=== PATIENT | female | born 1955 | race African-American/Black ===

== ENCOUNTER 2016-04-06 16:31 | Emergency (ER) | payer OTHER ==
[~2016-04-06] VITALS: Ht 167.6 cm; Wt 83.9 kg
[~2016-04-06 16:31] MED LIST: ACETAMINOPHEN-1 EAC1 ORAL; ALBUTEROL SULF8.5 GM INH; ASPIRIN81 MG ORAL; AZITHROMYCIN250 MG ORAL; AZITHROMYCIN250 MG PO; GABAPENTIN300 MG ORAL; GLUCOPHAGE500 MG PO; GLUCOTROL5 MG ORAL; GUAIFENESIN DA473 ML PO; HUMALOG100 UNIT/3 SUBQ; HYDROCODON-ACE1 EA15 ORAL; JANUVIA100 MG ORAL; LANTUS SOL100 UNIT/1 SUBQ; NORCO 5-325 TA1 EACH ORAL; NORCO 5-325 TA1 EACH PO; NORCO1 E1 ORAL; ONDANSETRON ODT4 MG PO; PHENERGAN/CODE120 ML PO; PREDNISONE20 MG ORAL; PROMETHAZINE-C118 M1 ORAL; PROVENTIL HFA6.7 G1 INH; QVAR 80MCG ORA1 PUFF; RISPERDAL2 MG ORAL; SOMA350 MG PO; TRAMADOL HCL50 MG ORAL; TRAZODONE HCL50 MG ORAL; ULTRAM50 MG ORAL; VICODIN 5-5001 EACH ORAL; VICODIN 5-5001 EACH PO; VITAMIN D22000 UNIT PO
--- NOTE | 2016-04-06 17:05 | Emergency Room Report ---
History of Present Illness General Chief Complaint: Nausea, Vomiting, and Diarrhea Source: Patient, Medical Record Present Illness HPI Patient is a 61-year-old female who presented after increased abdominal pain and vomiting. Patient reported having history of type 2 diabetes. The patient states that she been having increased epigastric pain associated with vomiting as well as diarrhea. Patient states that she has been feeling somewhat lightheaded. She reports having a cramping sensation in the epigastric area which is unchanged by food Allergies: Coded Allergies: IBUPROFEN (Verified Adverse Reaction, Intermediate, GI UPSET, 04/06/12) Patient History Past Medical History: see triage record Reviewed Nursing Documentation: PMH: Agreed, PSxH: Agreed Nursing Documentation-PMH Hx Hypertension: No Hx Pacemaker: No Hx Asthma: Yes Hx COPD: No Hx Diabetes: Yes Hx Cancer: No Hx Gastrointestinal Problems: No Hx Dialysis: No Hx Cerebrovascular Accident: No Hx Seizures: No Review of Systems All Other Systems: negative except mentioned in HPI Physical Exam Vital Signs Date Time Temp Pulse Resp B/P Pulse Ox O2 Delivery O2 Flow Rate FiO2 04/06/16 16:47 97.5 101 28 175/100 95 Room Air Sp02 EP Interpretation: reviewed, normal General Appearance: normal inspection, no apparent distress, alert, GCS 15, non -toxic, mild distress Head: atraumatic ENT: normal ENT inspection, hearing grossly normal, normal voice Neck: normal inspection, full range of motion, supple, no bony tend Respiratory: normal inspection, lungs clear, normal breath sounds, no respiratory distress, no retraction, no wheezing Cardiovascular #1: regular rate, rhythm, no edema Gastrointestinal: normal inspection, normal bowel sounds, non tender, soft, no guarding, no hernia Genitourinary: no CVA tenderness Musculoskeletal: normal inspection, back normal, normal range of motion Neurologic: normal inspection, alert, oriented x3, responsive, obgyn hospitalist physician III-XII nml as tested, speech normal Psychiatric: normal inspection, judgement/insight normal, mood/affect normal Skin: normal inspection, normal color, no rash Medical Decision Making ER Course Patient presented for abdominal pain. Differential diagnoses included ischemic bowel, appendicitis, perforated viscus, abdominal aortic aneurysm, inferior myocardial infarction, viral gastroenteritis Because of complexity of patient's case laboratory testing and imaging studies were ordered. Laboratory testing was unremarkable except for elevated blood sugar. Patient was given IV fluids and antiemetics. She stated she felt better. Patient was given return precautions.The patient is advised to follow up with primary care doctor in 1-2 days. Patient is advised to return if any worsening condition or if any changes in status that are concerning. Labs Test 04/06/16 17:20 White Blood Count 8.5 K/UL (4.8-10.8) Red Blood Count 4.87 M/UL (4.20-5.40) Hemoglobin 14.8 G/DL (12.0-16.0) Hematocrit 44.0 % (37.0-47.0) Mean Corpuscular Volume 90 FL (80-99) Mean Corpuscular Hemoglobin 30.3 PG (27.0-31.0) Mean Corpuscular Hemoglobin Concent 33.6 G/DL (32.0-36.0) Red Cell Distribution Width 12.3 % (11.6-14.8) Platelet Count 192 K/UL (150-450) Mean Platelet Volume 7.7 FL (6.5-10.1) Neutrophils (%) (Auto) 74.0 % (45.0-75.0) Lymphocytes (%) (Auto) 20.1 % (20.0-45.0) Monocytes (%) (Auto) 4.1 % (1.0-10.0) Eosinophils (%) (Auto) 1.0 % (0.0-3.0) Basophils (%) (Auto) 0.8 % (0.0-2.0) Prothrombin Time 10.1 SEC (9.30-11.50) Prothromb Time International Ratio 1.0 (0.9-1.1) Activated Partial Thromboplast Time 27 SEC (23-33) Sodium Level 141 mEQ/L (135-145) Potassium Level 4.2 mEQ/L (3.4-4.9) Chloride Level 96 mEQ/L (98-107) Carbon Dioxide Level 31 mEQ/L (20-30) Anion Gap 14 (5-15) Blood Urea Nitrogen 16 mg/dL (7-23) Creatinine 0.9 mg/dL (0.5-0.9) Estimat Glomerular Filtration Rate > 60 mL/min (>60) Glucose Level 349 mg/dL (74-106) Calcium Level 9.8 mg/dL (8.6-10.2) Total Bilirubin 0.2 mg/dL (0.0-1.2) Aspartate Amino Transf (AST/SGOT) 13 U/L (5-40) Alanine Aminotransferase (ALT/SGPT) 13 U/L (3-33) Alkaline Phosphatase 106 U/L (35-104) Troponin I < 0.30 ng/mL (<=0.30) Total Protein 8.0 g/dL (6.6-8.7) Albumin 4.4 g/dL (3.5-5.2) Globulin 3.6 g/dL Albumin/Globulin Ratio 1.2 (1.0-2.7) Lipase 20 U/L (< 60) EKG Diagnostic Results Rate: normal - 90 Rhythm: NSR ST Segments: no acute changes ASA given to the pt in ED: No Rhythm Strip Diag. Results EP Interpretation: yes Rhythm: NSR, no PVC's, no ectopy Last Vital Signs Date Time Temp Pulse Resp B/P Pulse Ox O2 Delivery O2 Flow Rate FiO2 04/06/16 16:47 97.5 101 28 175/100 95 Room Air Status: improved Disposition: HOME, SELF-CARE Condition: Stable Scripts Loperamide Hcl (LOPERAMIDE) 2 Mg Tablet 2 MG PO Q12HR for Diarrhea, #10 TAB Prov: Erasto Lofton 04/06/16 Ondansetron (Zofran) 4 Mg Tablet 4 MG ORAL Q6H Y for Nausea & Vomiting, #30 TAB 0 Refills Prov: Erasto Lofton 04/06/16 Erasto Lofton Apr 06, 2016 17:05
[2016-04-06] MEDS ORDERED: Mylanta II UD 30ml ORAL ONE (17:15)
[2016-04-06] MEDS ORDERED: Dicyclomine HCl 10mg/5ml oral soln ORAL ONE (17:15)
[2016-04-06] MEDS ORDERED: Metoclopramide 10mg/2ml Inj IVP ONE (17:15)
[2016-04-06] MEDS ORDERED: Lidocaine 2% Visc 15ml soln ORAL ONE (17:15)
[2016-04-06 17:37] VITALS: BP 159/84
[2016-04-06 17:48] LABS: ALANINE AMINOTRANSFERASE 13 U/L (3-33); ALBUMIN/GLOBULIN RATIO 1.2 (1.0-2.7); ANION GAP 14 (5-15); ASPARTATE AMINO TRANSFERASE 13 U/L (5-40); CALCIUM 9.8 mg/dL (8.6-10.2); CARBON DIOXIDE 31 mEQ/L (20-30); CHLORIDE 96 mEQ/L (98-107); CREATININE 0.9 mg/dL (0.5-0.9); GLOMERULAR FILTRATION RATE > 60 mL/min (>60); HEMOLYSIS 6; LIPASE 20 U/L (< 60); POTASSIUM 4.2 mEQ/L (3.4-4.9); SODIUM 141 mEQ/L (135-145)
[2016-04-06 17:52] LABS: BASOPHILS % (AUTO) 0.8 % (0.0-2.0); LYMPHOCYTES % (AUTO) 20.1 % (20.0-45.0); MEAN CORPUSCULAR HEMOGLOBIN 30.3 PG (27.0-31.0); MEAN CORPUSCULAR HGB CONC 33.6 G/DL (32.0-36.0); MEAN CORPUSCULAR VOLUME 90 FL (80-99); MEAN PLATELET VOLUME 7.7 FL (6.5-10.1); MONOCYTES % (AUTO) 4.1 % (1.0-10.0); PLATELET COUNT 192 K/UL (150-450); RED BLOOD COUNT 4.87 M/UL (4.20-5.40); RED CELL DISTRIBUTION WIDTH 12.3 % (11.6-14.8); WHITE BLOOD COUNT 8.5 K/UL (4.8-10.8)
[2016-04-06 17:54] LABS: TROPONIN I < 0.30 ng/mL (<=0.30)
[2016-04-06 18:03] LABS: PROTHROMBIN TIME 10.1 SEC (9.30-11.50)
[2016-04-06] MEDS ORDERED: ZOFRAN4 MG ORAL (18:22)
[2016-04-06] MEDS ORDERED: LOPERAMIDE2 M1 PO (18:22)
[2016-04-06 19:14] VITALS: BP_SYST 132; BP_SYST 159; BP_DIAS 79; BP_DIAS 84
--- NOTE | 2016-04-07 12:17 | Cardiology Report ---
APPROVED REPORT EKG Measurement Heart [id number] Normal sinus rhythm Cannot rule out Anterior infarct, age undetermined Abnormal ECG
== END 2016-04-06 19:16 | disposition home or self-care (01) ==
LOC: EMR 17:05
DX: R11.2 Nausea with vomiting, unspecified (principal); R19.7 Diarrhea, unspecified; J45.909 Unspecified asthma, uncomplicated; E11.9 Type 2 diabetes mellitus without complications; Z88.6 Allergy status to analgesic agent
CPT/HCPCS: 36415; 80053; 82962; 83690; 84484; 85025; 85610; 85730; 93005; 96372; 96374; 96375; 99284; J1815; J2765

== ENCOUNTER 2016-08-14 03:04 | Emergency (ER) | payer MEDICAID, OTHER ==
[~2016-08-14] VITALS: Ht 167.6 cm; Wt 81.2 kg
[~2016-08-14 03:04] MED LIST changes: +LOPERAMIDE2 M1 PO; +ZOFRAN4 MG ORAL
[2016-08-14 03:15] VITALS: BP 118/67
--- NOTE | 2016-08-14 03:32 | Emergency Room Report ---
History of Present Illness General Chief Complaint: Upper Respiratory Illness Source: Patient Present Illness HPI Patient present with complaints of cough and congestion She also reports that she had cramping in both of her legs That came on last night Denies any pleurisy denies any chest pain or shortness of breath Denies any dysuria frequency Patient feels that she has a cold as well with increased cough and congestion Allergies: Coded Allergies: IBUPROFEN (Verified Adverse Reaction, Intermediate, GI UPSET, 04/06/12) Patient History Past Medical History: see triage record Pertinent Family History: none Reviewed Nursing Documentation: PMH: Agreed, PSxH: Agreed Nursing Documentation-PMH Hx Hypertension: No Hx Pacemaker: No Hx Asthma: Yes Hx COPD: No Hx Diabetes: Yes Hx Cancer: No Hx Gastrointestinal Problems: No Hx Dialysis: No Hx Cerebrovascular Accident: No Hx Seizures: No Review of Systems All Other Systems: negative except mentioned in HPI Physical Exam Vital Signs Date Time Temp Pulse Resp B/P Pulse Ox O2 Delivery O2 Flow Rate FiO2 08/14/16 03:10 98.2 92 16 117/69 98 08/14/16 03:14 Room Air Sp02 EP Interpretation: reviewed, normal General Appearance: well appearing, no apparent distress Head: normocephalic, atraumatic Eyes: bilateral eye EOMI, bilateral eye PERRL ENT: hearing grossly normal, normal pharynx, TMs + canals normal, uvula midline Neck: full range of motion, supple, no meningismus, no bony tend Respiratory: lungs clear, normal breath sounds, no rhonchi, no respiratory distress, no retraction, no accessory muscle use Cardiovascular #1: normal peripheral pulses, regular rate, rhythm, no edema, no gallop, no JVD, no murmur Gastrointestinal: normal bowel sounds, non tender, soft, no mass, no organomegaly, non-distended, no guarding, no hernia, no pulsatile mass, no rebound Genitourinary: no CVA tenderness Musculoskeletal: normal inspection Neurologic: oriented x3, responsive, dispatcher automobile rental III-XII nml as tested, motor strength/ tone normal, sensory intact Psychiatric: mood/affect normal Skin: normal color, no rash, warm/dry, palpation normal Lymphatic: normal inspection, no adenopathy Medical Decision Making Diagnostic Impression: Primary Impression: muscle spasm Additional Impressions: Opiate dependence hyperglycemia ER Course Patient reports previous history of blood clot She was here previously with leg cramps an ultrasound at that time was negative At this time patient does not show any swelling of her legs there is no erythema Discomfort is bilateral and intermittent There is no clinical evidence of DVT and further imaging was not obtained for that Patient's glucose on the chemistry was over 300 Accu-Chek prior to disposition is 270 patient potassium is normal she is receiving Portia and soma according to cures review and is stable for continued close outpatient followup Labs Test 08/14/16 03:36 White Blood Count 7.4 K/UL (4.8-10.8) Red Blood Count 4.82 M/UL (4.20-5.40) Hemoglobin 13.9 G/DL (12.0-16.0) Hematocrit 43.0 % (37.0-47.0) Mean Corpuscular Volume 89 FL (80-99) Mean Corpuscular Hemoglobin 28.8 PG (27.0-31.0) Mean Corpuscular Hemoglobin Concent 32.3 G/DL (32.0-36.0) Red Cell Distribution Width 12.3 % (11.6-14.8) Platelet Count 178 K/UL (150-450) Mean Platelet Volume 9.9 FL (6.5-10.1) Neutrophils (%) (Auto) 52.6 % (45.0-75.0) Lymphocytes (%) (Auto) 38.9 % (20.0-45.0) Monocytes (%) (Auto) 5.7 % (1.0-10.0) Eosinophils (%) (Auto) 2.0 % (0.0-3.0) Basophils (%) (Auto) 0.8 % (0.0-2.0) Sodium Level 137 mEQ/L (135-145) Potassium Level 4.0 mEQ/L (3.4-4.9) Chloride Level 97 mEQ/L (98-107) Carbon Dioxide Level 24 mEQ/L (20-30) Anion Gap 16 (5-15) Blood Urea Nitrogen 26 mg/dL (7-23) Creatinine 0.7 mg/dL (0.5-0.9) Estimat Glomerular Filtration Rate > 60 mL/min (>60) Glucose Level 332 mg/dL (74-106) Calcium Level 9.1 mg/dL (8.6-10.2) Total Bilirubin < 0.2 mg/dL (0.0-1.2) Aspartate Amino Transf (AST/SGOT) 11 U/L (5-40) Alanine Aminotransferase (ALT/SGPT) 10 U/L (3-33) Alkaline Phosphatase 102 U/L (35-104) Total Protein 6.7 g/dL (6.6-8.7) Albumin 3.7 g/dL (3.5-5.2) Globulin 3.0 g/dL Albumin/Globulin Ratio 1.2 (1.0-2.7) Chest X-Ray Diagnostic Results EP Interpretation: Yes Findings: no consolidation, no effusion, no pneumothorax Number of Views: 1 Last Vital Signs Date Time Temp Pulse Resp B/P Pulse Ox O2 Delivery O2 Flow Rate FiO2 08/14/16 03:15 98.2 88 14 118/67 98 Room Air Status: improved Disposition: HOME, SELF-CARE Condition: Improved Additional Instructions: Patient is provided with the discharge instructions notified to follow up with primary doctor in the next 2-3 days otherwise return to the er with any worsening symptoms. Please note that this report is being documented using [employer] technology. This can lead to erroneous entry secondary to incorrect interpretation by the dictating instrument. KANE DEE D.O. Aug 14, 2016 03:32
[2016-08-14 03:44] LABS: BASOPHILS % (AUTO) 0.8 % (0.0-2.0); LYMPHOCYTES % (AUTO) 38.9 % (20.0-45.0); MEAN CORPUSCULAR HEMOGLOBIN 28.8 PG (27.0-31.0); MEAN CORPUSCULAR HGB CONC 32.3 G/DL (32.0-36.0); MEAN CORPUSCULAR VOLUME 89 FL (80-99); MEAN PLATELET VOLUME 9.9 FL (6.5-10.1); MONOCYTES % (AUTO) 5.7 % (1.0-10.0); NEUTROPHILS % (AUTO) 52.6 % (45.0-75.0); PLATELET COUNT 178 K/UL (150-450); RED BLOOD COUNT 4.82 M/UL (4.20-5.40); RED CELL DISTRIBUTION WIDTH 12.3 % (11.6-14.8); WHITE BLOOD COUNT 7.4 K/UL (4.8-10.8)
[2016-08-14 03:58] LABS: ALANINE AMINOTRANSFERASE 10 U/L (3-33); ALBUMIN/GLOBULIN RATIO 1.2 (1.0-2.7); ANION GAP 16 (5-15); ASPARTATE AMINO TRANSFERASE 11 U/L (5-40); CALCIUM 9.1 mg/dL (8.6-10.2); CARBON DIOXIDE 24 mEQ/L (20-30); CHLORIDE 97 mEQ/L (98-107); CREATININE 0.7 mg/dL (0.5-0.9); GLOMERULAR FILTRATION RATE > 60 mL/min (>60); HEMOLYSIS 4; SODIUM 137 mEQ/L (135-145); TOTAL PROTEIN 6.7 g/dL (6.6-8.7)
[2016-08-14 05:15] VITALS: BP 128/71
[2016-08-14 05:28] VITALS: BP 128/71
--- NOTE | 2016-08-14 11:33 | Diagnostic Imaging Report ---
Indication: SOB Technique: One view of the chest Comparison: 03/05/2016 Findings: Lungs and pleural spaces are clear. Heart size is normal. No significant change Impression: No acute process This agrees with the preliminary interpretation provided by the emergency room physician
== END 2016-08-14 05:28 | disposition home or self-care (01) ==
LOC: EMR 03:30
DX: M62.838 Other muscle spasm (principal); F11.20 Opioid dependence, uncomplicated; E11.65 Type 2 diabetes mellitus with hyperglycemia; J45.909 Unspecified asthma, uncomplicated; Z88.6 Allergy status to analgesic agent
CPT/HCPCS: 36415; 71010; 80053; 82962; 85025; 99283

== ENCOUNTER 2017-02-18 02:02 | Emergency (ER) | payer MEDICAID, OTHER ==
[~2017-02-18] VITALS: Ht 167.6 cm; Wt 81.6 kg
[2017-02-18 02:20] VITALS: BP 123/76
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
[2017-02-18] MEDS ORDERED: ROBAXIN-750750 MG PO (02:40)
[2017-02-18] MEDS ORDERED: oxyCODONE HCL/Acetaminophen 5/325mg ORAL ONE (02:45)
[2017-02-18] MEDS ORDERED: Methocarbamol 750mg tab ORAL ONE (02:45)
[2017-02-18 03:04] VITALS: BP 123/76
== END 2017-02-18 03:04 | disposition home or self-care (01) ==
LOC: EMR 02:17
DX: M54.2 Cervicalgia (principal); J45.909 Unspecified asthma, uncomplicated; E11.9 Type 2 diabetes mellitus without complications; Z88.6 Allergy status to analgesic agent
CPT/HCPCS: 99283

== ENCOUNTER 2017-05-30 09:38 | Emergency (ER) | payer OTHER ==
[~2017-05-30] VITALS: Ht 167.6 cm; Wt 83.9 kg
[~2017-05-30 09:38] MED LIST changes: +ROBAXIN-750750 MG PO
[2017-05-30 09:53] VITALS: BP 130/70
[2017-05-30] MEDS ORDERED: Ipratropium 0.02% Inh Soln 2.5ml UD HHN ONE (10:30)
[2017-05-30] MEDS ORDERED: Morphine Sulfate 4mg/ml Inj IVP ONE (10:30)
[2017-05-30] MEDS ORDERED: Albuterol ud Inhalation HHN ONE (10:30)
[2017-05-30 10:58] LABS: APPEARANCE,URINE SLIGHTLY CLOUDY; BILIRUBIN, URINE NEGATIVE (NEGATIVE); COLOR,URINE AMBER; GLUCOSE, URINE (UA) 4+ (NEGATIVE); KETONES,URINE NEGATIVE (NEGATIVE); LEUKOCYTE ESTERASE ,URINE 1+ (NEGATIVE); NITRITE,URINE NEGATIVE (NEGATIVE); PH,URINE 6 (4.5-8.0); PROTEIN,URINE 1+ (NEGATIVE); UROBILINOGEN,URINE 1 MG/DL (0.0-1.0)
[2017-05-30 11:00] VITALS: BP 128/68
[2017-05-30 11:08] LABS: ANION GAP 4 mmol/L (5-15); BLOOD UREA NITROGEN 17 mg/dL (7-18); CALCIUM 8.9 MG/DL (8.5-10.1); CARBON DIOXIDE 33 MMOL/L (21-32); CHLORIDE 103 MMOL/L (98-107); CREATININE 0.8 MG/DL (0.55-1.30); POTASSIUM 4.7 MMOL/L (3.5-5.1); SODIUM 140 MMOL/L (136-145)
[2017-05-30 11:09] LABS: BASOPHILS % (AUTO) 0.9 % (0.0-2.0); EOSINOPHILS % (AUTO) 2.1 % (0.0-3.0); HEMATOCRIT 42.3 % (37.0-47.0); HEMOGLOBIN 13.5 G/DL (12.0-16.0); LYMPHOCYTES % (AUTO) 36.3 % (20.0-45.0); MEAN CORPUSCULAR VOLUME 92 FL (80-99); MONOCYTES % (AUTO) 4.4 % (1.0-10.0); NEUTROPHILS % (AUTO) 56.3 % (45.0-75.0); PLATELET COUNT 232 K/UL (150-450); RED BLOOD COUNT 4.57 M/UL (4.20-5.40); RED CELL DISTRIBUTION WIDTH 12.5 % (11.6-14.8); WHITE BLOOD COUNT 8.5 K/UL (4.8-10.8)
[2017-05-30 11:19] LABS: ALANINE AMINOTRANSFERASE 17 U/L (12-78); ALBUMIN 3.1 G/DL (3.4-5.0); ALBUMIN/GLOBULIN RATIO 0.8 (1.0-2.7); ALKALINE PHOSPHATASE 124 U/L (46-116); ASPARTATE AMINO TRANSFERASE 11 U/L (15-37); BILIRUBIN,TOTAL 0.2 MG/DL (0.2-1.0)
--- NOTE | 2017-05-30 11:38 | Diagnostic Imaging Report ---
Indication: Chest pain Technique: XRAY Chest 1v Comparison: 08/14/2016 Findings: Cardiomediastinal silhouette is stable. There is no consolidation or pleural effusion. Degenerative changes of the spine are noted. Impression: No acute cardiopulmonary disease.
[2017-05-30 12:00] VITALS: BP 141/69
--- NOTE | 2017-05-30 12:13 | Emergency Room Report ---
History of Present Illness General Chief Complaint: Upper Respiratory Illness Source: Patient Present Illness HPI Patient presents with cough and chest pain for 2 days. No fevers. No productive phlegm. Denies sore throat. Pain is 8/10, aching and pleuritic, more with cough, band like across chest, not radiating. She hears herself wheezing. No inhaler use at this time, but has used in past. No calf tenderness or edema. Patient is diabetic and smokes THC. Denies cigarettes, HTN or family history. Osteoarthritis with some joint pain which is chronic and unchanged. Neuropathy of LE bilat. Denies significant stress. Allergies: Coded Allergies: IBUPROFEN (Verified Adverse Reaction, Intermediate, GI UPSET, 04/06/12) Patient History Past Medical History: see triage record Social History: Reports: drug use; Denies: smoking, alcohol use Social History Narrative at home Now: No Reviewed Nursing Documentation: PMH: Agreed; PSxH: Agreed Nursing Documentation-PMH Past Medical History: No History, Except For Hx Hypertension: No Hx Pacemaker: No Hx Asthma: Yes Hx COPD: No Hx Diabetes: Yes Hx Cancer: No Hx Gastrointestinal Problems: No Hx Dialysis: No Hx Cerebrovascular Accident: No Hx Seizures: No Review of Systems All Other Systems: negative except mentioned in HPI Physical Exam Vital Signs Date Time Temp Pulse Resp B/P (MAP) Pulse Ox O2 Delivery O2 Flow Rate FiO2 05/30/17 09:41 98.2 94 24 118/69 94 Room Air 98.2 05/30/17 10:35 21 Sp02 EP Interpretation: reviewed, normal General Appearance: well appearing, no apparent distress, GCS 15 Head: normocephalic Eyes: bilateral eye normal inspection, bilateral eye PERRL ENT: moist mucus membranes Neck: supple Respiratory: wheezing - minimal, expiration, other - some chest wall tenderness Cardiovascular #1: regular rate, rhythm, no edema Cardiovascular #2: 2+ radial (R) Gastrointestinal: normal inspection, normal bowel sounds, non tender, no mass, non-distended Musculoskeletal: back normal, gait/station normal, normal range of motion, no calf tenderness Neurologic: alert, oriented x3, sensory deficit - LE, grossly normal Psychiatric: mood/affect normal Skin: normal inspection, warm/dry Medical Decision Making Diagnostic Impression: Primary Impression: Chest pain Qualified Codes: R07.9 - Chest pain, unspecified Additional Impressions: Upper respiratory infection Qualified Codes: J06.9 - Acute upper respiratory infection, unspecified Diabetes Qualified Codes: E11.42 - Type 2 diabetes mellitus with diabetic polyneuropathy; Z79.4 - buttermaker continuous churn (current) use of insulin ER Course Diabetic with URI sy and chest pain. Ddx: AMI, ACS, pleurisy, URI, bronchospasm , costochondritis amongst others. Exam against PE. Due to diabetes, cardiac evaluation essential. EKG, CXR and labs ordered. Patient treated with analgesia and breathing treatments. EKG without injury. CXR normal. Labs with elevated glucose, normal WBC and troponin. Pyuria. Rocephin ordered. Improved with treatment. Patient stable for outpatient observation and treatment. Laboratory Tests Test 05/30/17 10:35 White Blood Count 8.5 K/UL (4.8-10.8) Red Blood Count 4.57 M/UL (4.20-5.40) Hemoglobin 13.5 G/DL (12.0-16.0) Hematocrit 42.3 % (37.0-47.0) Mean Corpuscular Volume 92 FL (80-99) Mean Corpuscular Hemoglobin 29.6 PG (27.0-31.0) Mean Corpuscular Hemoglobin Concent 32.0 G/DL (32.0-36.0) Red Cell Distribution Width 12.5 % (11.6-14.8) Platelet Count 232 K/UL (150-450) Mean Platelet Volume 9.2 FL (6.5-10.1) Neutrophils (%) (Auto) 56.3 % (45.0-75.0) Lymphocytes (%) (Auto) 36.3 % (20.0-45.0) Monocytes (%) (Auto) 4.4 % (1.0-10.0) Eosinophils (%) (Auto) 2.1 % (0.0-3.0) Basophils (%) (Auto) 0.9 % (0.0-2.0) Urine Color [place] Urine Appearance Slightly cloudy Urine pH 6 (4.5-8.0) Urine Specific [place] 1.025 (1.005-1.035) Urine Protein 1+ (NEGATIVE) H Urine Glucose (UA) 4+ (NEGATIVE) H Urine Ketones Negative (NEGATIVE) Urine Occult Blood Negative (NEGATIVE) Urine Nitrite Negative (NEGATIVE) Urine Bilirubin Negative (NEGATIVE) Urine Ictotest Negative Urine Urobilinogen 1 MG/DL (0.0-1.0) H Urine Leukocyte Esterase 1+ (NEGATIVE) H Urine RBC 0-2 /HPF (0 - 2) Urine WBC 5-10 /HPF (0 - 2) H Urine Squamous Epithelial Cells Moderate /LPF (NONE/OCC) H Urine Bacteria Moderate /HPF (NONE) H Sodium Level 140 MMOL/L (136-145) Potassium Level 4.7 MMOL/L (3.5-5.1) Chloride Level 103 MMOL/L (98-107) Carbon Dioxide Level 33 MMOL/L (21-32) H Anion Gap 4 mmol/L (5-15) L Blood Urea Nitrogen 17 mg/dL (7-18) Creatinine 0.8 MG/DL (0.55-1.30) Estimate Glomerular Filtration Rate > 60 mL/min (>60) Glucose Level 273 MG/DL (74-106) H Calcium Level 8.9 MG/DL (8.5-10.1) Total Bilirubin 0.2 MG/DL (0.2-1.0) Aspartate Amino Transferase (AST) 11 U/L (15-37) L Alanine Aminotransferase (ALT) 17 U/L (12-78) Alkaline Phosphatase 124 U/L (46-116) H Troponin I 0.000 ng/mL (0.000-0.056) Pro-B-Type Natriuretic Peptide 8 pg/mL (0-125) Total Protein 7.1 G/DL (6.4-8.2) Albumin 3.1 G/DL (3.4-5.0) L Globulin 4.0 g/dL Albumin/Globulin Ratio 0.8 (1.0-2.7) L Microbiology Date/Time Source Procedure Growth Status 05/30/17 10:35 Nasal Nares Influenza Types A,B Antigen (YENNY) - Final Complete EKG Diagnostic Results Rate: normal Rhythm: NSR ST Segments: no acute changes Rhythm Strip Diag. Results EP Interpretation: yes Rhythm: NSR, no PVC's, no ectopy Chest X-Ray Diagnostic Results Chest X-Ray Diagnostic Results : Chest X-Ray Ordered: Yes # of Views/Limited/Complete: 1 View Indication: Other EP Interpretation: Yes Interpretation: no consolidation, no effusion, no pneumothorax Impression: No acute disease Electronically Signed by: Electronically signed by Cornelius Cee MD Last Vital Signs Date Time Temp Pulse Resp B/P (MAP) Pulse Ox O2 Delivery O2 Flow Rate FiO2 05/30/17 12:28 83 17 141/69 97 Room Air 05/30/17 11:29 98.5 05/30/17 10:35 21 Status: improved Disposition: HOME, SELF-CARE Condition: Improved Scripts Acetaminophen (Tylenol) 325 Mg Tablet 650 MG ORAL Q6H PRN for Prn Pain/Headache/Temp > 101, #20 TAB 0 Refills Prov: Cornelius Cee M.D. 05/30/17 Albuterol Sulfate* (ALBUTEROL SULFATE MDI*) 8.5 Gm Hfa.aer.ad 2 PUFF INH Q6H, #1 EA 0 Refills Prov: Cornelius Cee M.D. 05/30/17 Guaifenesin/Codeine Phos* (ROBITUSSIN AC*) 118 Ml Liquid 1 TSP ORAL Q6H PRN for For Cough, #118 ML 0 Refills Prov: Cornelius Cee M.D. 05/30/17 Referrals: [facility],REFERRING (PCP) Cornelius Cee M.D. May 30, 2017 12:13
[2017-05-30] MEDS ORDERED: TYLENOL325 MG ORAL (12:20)
[2017-05-30] MEDS ORDERED: ALBUTEROL SULF8.5 GM INH (12:20)
[2017-05-30] MEDS ORDERED: GUAIFENESIN-CO118 M1 ORAL (12:20)
[2017-05-30 12:28] VITALS: BP 141/69
--- NOTE | 2017-06-01 19:19 | Cardiology Report ---
APPROVED REPORT EKG Measurement Heart [id number] Normal sinus rhythm Cannot rule out Anterior infarct, age undetermined Abnormal ECG
== END 2017-05-30 12:29 | disposition home or self-care (01) ==
LOC: EMR 10:20
DX: R07.9 Chest pain, unspecified (principal); J06.9 Acute upper respiratory infection, unspecified; E11.42 Type 2 diabetes mellitus with diabetic polyneuropathy; Z79.4 Long term (current) use of insulin; J45.909 Unspecified asthma, uncomplicated; Z88.6 Allergy status to analgesic agent
CPT/HCPCS: 36415; 71045; 80053; 81003; 82962; 83880; 84484; 85025; 86710; 87086; 93005; 94640; 96361; 96374; 96375; 99284; J2270; J2405

== ENCOUNTER 2017-07-19 16:37 | Emergency (ER) | payer OTHER ==
[~2017-07-19] VITALS: Ht 167.6 cm; Wt 83.9 kg
[~2017-07-19 16:37] MED LIST changes: +GUAIFENESIN-CO118 M1 ORAL; +TYLENOL325 MG ORAL
[2017-07-19] MEDS ORDERED: HYDROcodone/Acetamin 7.5/325 tab ORAL ONE (17:45)
[2017-07-19] MEDS ORDERED: Methocarbamol 750mg tab ORAL ONE (17:45)
[2017-07-19 17:47] LABS: EOSINOPHILS % (AUTO) 2.7 % (0.0-3.0); HEMATOCRIT 40.4 % (37.0-47.0); LYMPHOCYTES % (AUTO) 37.8 % (20.0-45.0); MEAN CORPUSCULAR VOLUME 90 FL (80-99); MONOCYTES % (AUTO) 5.6 % (1.0-10.0); PLATELET COUNT 217 K/UL (150-450); RED BLOOD COUNT 4.49 M/UL (4.20-5.40); RED CELL DISTRIBUTION WIDTH 11.8 % (11.6-14.8); WHITE BLOOD COUNT 7.9 K/UL (4.8-10.8)
[2017-07-19 18:09] LABS: ANION GAP 8 mmol/L (5-15); BLOOD UREA NITROGEN 12 mg/dL (7-18); CALCIUM 9.1 MG/DL (8.5-10.1); CARBON DIOXIDE 28 MMOL/L (21-32); CHLORIDE 103 MMOL/L (98-107); CREATININE 0.8 MG/DL (0.55-1.30); POTASSIUM 3.8 MMOL/L (3.5-5.1); SODIUM 138 MMOL/L (136-145)
[2017-07-19 18:11] VITALS: BP 146/81
[2017-07-19 18:14] LABS: ALANINE AMINOTRANSFERASE 22 U/L (12-78); ALBUMIN 3.2 G/DL (3.4-5.0); ALBUMIN/GLOBULIN RATIO 0.8 (1.0-2.7); ALKALINE PHOSPHATASE 168 U/L (46-116); ASPARTATE AMINO TRANSFERASE 13 U/L (15-37); BILIRUBIN,TOTAL 0.1 MG/DL (0.2-1.0)
--- NOTE | 2017-07-19 18:51 | Emergency Room Report ---
History of Present Illness General Chief Complaint: Pain Source: Patient Present Illness HPI 62 YO Female presents to the ED C/o 10 out of 10 in severity pain located in the left posterior calf that she describes as tight and spasm-like. Patient reports that the pain has not resolved over the course of 2 days. Patient reports history of clots in the past. Patient denies recent travel she denies being sedentary for prolonged periods of time she denies estrogen replacement therapy. Patient denies trauma or fall, denies swelling of the affected extremity, erythema or bruises. Denies numbness tingling or loss of sensation or gross motor movements of the extremities. Denies CP, Palpitations, LOC, AMS, dizziness, paresthesias, or a sudden severe headache. Allergies: Coded Allergies: IBUPROFEN (Verified Adverse Reaction, Intermediate, GI UPSET, 04/06/12) Patient History Past Medical History: see triage record Past Surgical History: none Pertinent Family History: none Now: No Reviewed Nursing Documentation: PMH: Agreed; PSxH: Agreed Nursing Documentation-PMH Hx Hypertension: No Hx Pacemaker: No Hx Asthma: Yes Hx COPD: No Hx Diabetes: Yes Hx Cancer: No Hx Gastrointestinal Problems: No Hx Dialysis: No Hx Cerebrovascular Accident: No Hx Seizures: No Review of Systems All Other Systems: negative except mentioned in HPI Physical Exam Vital Signs Date Time Temp Pulse Resp B/P (MAP) Pulse Ox O2 Delivery O2 Flow Rate FiO2 07/19/17 16:43 98.3 99 20 146/81 95 Room Air 98.2 Sp02 EP Interpretation: reviewed, normal General Appearance: no apparent distress, alert, GCS 15, non-toxic Head: normocephalic, atraumatic ENT: hearing grossly normal, normal voice Neck: full range of motion Respiratory: lungs clear, normal breath sounds, speaking full sentences Cardiovascular #1: regular rate, rhythm, no edema, normal capillary refill Musculoskeletal: back normal, gait/station normal, normal range of motion, tender - Left posterior calf tenderness, no appreciable swelling, no erythema Neurologic: alert, oriented x3, responsive, motor strength/tone normal, sensory intact, speech normal, grossly normal Psychiatric: judgement/insight normal Skin: normal color, no rash, warm/dry, well hydrated Medical Decision Making PA Attestation Dr. bernard is my supervising Physician whom patient management has been discussed with. Diagnostic Impression: Primary Impression: Calf pain Qualified Codes: M79.662 - Pain in left lower leg ER Course 62 YO Female presents to the ED C/o 10 out of 10 in severity pain located in the left posterior calf that she describes as tight and spasm-like. Patient reports that the pain has not resolved over the course of 2 days. Patient reports history of clots in the past. Patient denies recent travel she denies being sedentary for prolonged periods of time she denies estrogen replacement therapy. Patient denies trauma or fall, denies swelling of the affected extremity, erythema or bruises. Denies numbness tingling or loss of sensation or gross motor movements of the extremities. Denies CP, Palpitations, LOC, AMS, dizziness, paresthesias, or a sudden severe headache. Ddx considered but are not limited to Cellulitis, DVT, varicose vein, PAD, Venous insufficiency Vital signs: are WNL, pt. is afebrile H&PE are most consistent with posterior calf pain in patient with few dvt RF' s. no evidence of infection. ORDERS: CMP, CBC- Unremarkable other than elevated glucose and AST. LE duplex U/s to R/O dvt: NEGATIVE for DVT. ED INTERVENTIONS: None required at this time. DISCHARGE: At this time pt. is stable for d/c to home. Will provide printed patient care instructions, and any necessary prescriptions. Care plan and follow up instructions have been discussed with the patient prior to discharge. Labs Test 07/19/17 17:05 White Blood Count 7.9 K/UL (4.8-10.8) Red Blood Count 4.49 M/UL (4.20-5.40) Hemoglobin 13.0 G/DL (12.0-16.0) Hematocrit 40.4 % (37.0-47.0) Mean Corpuscular Volume 90 FL (80-99) Mean Corpuscular Hemoglobin 29.0 PG (27.0-31.0) Mean Corpuscular Hemoglobin Concent 32.2 G/DL (32.0-36.0) Red Cell Distribution Width 11.8 % (11.6-14.8) Platelet Count 217 K/UL (150-450) Mean Platelet Volume 8.7 FL (6.5-10.1) Neutrophils (%) (Auto) 53.0 % (45.0-75.0) Lymphocytes (%) (Auto) 37.8 % (20.0-45.0) Monocytes (%) (Auto) 5.6 % (1.0-10.0) Eosinophils (%) (Auto) 2.7 % (0.0-3.0) Basophils (%) (Auto) 1.0 % (0.0-2.0) Sodium Level 138 MMOL/L (136-145) Potassium Level 3.8 MMOL/L (3.5-5.1) Chloride Level 103 MMOL/L (98-107) Carbon Dioxide Level 28 MMOL/L (21-32) Anion Gap 8 mmol/L (5-15) Blood Urea Nitrogen 12 mg/dL (7-18) Creatinine 0.8 MG/DL (0.55-1.30) Estimat Glomerular Filtration Rate > 60 mL/min (>60) Glucose Level 368 MG/DL (74-106) Calcium Level 9.1 MG/DL (8.5-10.1) Total Bilirubin 0.1 MG/DL (0.2-1.0) Aspartate Amino Transf (AST/SGOT) 13 U/L (15-37) Alanine Aminotransferase (ALT/SGPT) 22 U/L (12-78) Alkaline Phosphatase 168 U/L (46-116) Total Protein 7.3 G/DL (6.4-8.2) Albumin 3.2 G/DL (3.4-5.0) Globulin 4.1 g/dL Albumin/Globulin Ratio 0.8 (1.0-2.7) CT/MRI/US Diagnostic Results CT/MRI/US Diagnostic Results : Imaging Test Ordered: Venous Duplex US - Unilateral left lower extremity Impression Negative for DVT. Last Vital Signs Date Time Temp Pulse Resp B/P (MAP) Pulse Ox O2 Delivery O2 Flow Rate FiO2 07/19/17 18:11 208.9 78 20 146/81 95 Room Air 208.9 Disposition: HOME, SELF-CARE Scripts Methocarbamol* (ROBAXIN*) 500 Mg Tablet 1000 MG PO TID, #42 TAB 0 Refills Prov: Bhumi Hannon. 07/19/17 Referrals: [facility],REFERRING (PCP) Patient Instructions: Muscle Cramps and Spasms Additional Instructions: Take medications as directed. Follow up with a Primary Care Provider in 3-5 days, even if your symptoms have resolved. --Please review list of primary care clinics, if you do not already have a primary care provider Return sooner to ED if new symptoms occur, or current symptoms become worse. Do not drink alcohol, drive, or operate heavy machinery while taking Muscle relaxers as this may cause drowsiness. - Please note that this Emergency Department Report was dictated using [employer] ([employer])senior program planner technology software, occasionally this can lead to erroneous entry secondary to interpretation by the dictation equipment. Bhumi Hannon July 19, 2017 18:51
[2017-07-19] MEDS ORDERED: ROBAXIN500 MG PO (20:36)
[2017-07-19 20:39] VITALS: BP 146/81
== END 2017-07-19 20:43 | disposition home or self-care (01) ==
LOC: EMR 17:30
DX: M62.838 Other muscle spasm (principal); Z88.6 Allergy status to analgesic agent; J45.909 Unspecified asthma, uncomplicated; E11.9 Type 2 diabetes mellitus without complications
CPT/HCPCS: 36415; 80053; 85025; 93971; 99284

== ENCOUNTER 2017-08-06 16:24 | Emergency (ER) | payer OTHER ==
[~2017-08-06] VITALS: Ht 167.6 cm; Wt 81.6 kg
[~2017-08-06 16:24] MED LIST changes: +ROBAXIN500 MG PO
[2017-08-06 17:12] LABS: BASOPHILS % (AUTO) 0.9 % (0.0-2.0); EOSINOPHILS % (AUTO) 2.7 % (0.0-3.0); HEMATOCRIT 37.4 % (37.0-47.0); HEMOGLOBIN 12.3 G/DL (12.0-16.0); LYMPHOCYTES % (AUTO) 33.4 % (20.0-45.0); MEAN CORPUSCULAR VOLUME 89 FL (80-99); MONOCYTES % (AUTO) 4.8 % (1.0-10.0); NEUTROPHILS % (AUTO) 58.1 % (45.0-75.0); PLATELET COUNT 203 K/UL (150-450); RED BLOOD COUNT 4.21 M/UL (4.20-5.40); WHITE BLOOD COUNT 8.2 K/UL (4.8-10.8)
[2017-08-06 17:13] LABS: APPEARANCE,URINE CLOUDY; BILIRUBIN, URINE NEGATIVE (NEGATIVE); GLUCOSE, URINE (UA) 2+ (NEGATIVE); KETONES,URINE NEGATIVE (NEGATIVE); LEUKOCYTE ESTERASE ,URINE 1+ (NEGATIVE); NITRITE,URINE NEGATIVE (NEGATIVE); PH,URINE 6 (4.5-8.0); PROTEIN,URINE 2+ (NEGATIVE); UROBILINOGEN,URINE 1 MG/DL (0.0-1.0)
[2017-08-06 17:14] LABS: COLOR,URINE YELLOW
[2017-08-06] MEDS ORDERED: Isovue-300 100ml vial INJ PRN (17:15)
[2017-08-06 17:24] LABS: INR 0.9 (0.9-1.1)
[2017-08-06 17:28] LABS: ANION GAP 6 mmol/L (5-15); BLOOD UREA NITROGEN 17 mg/dL (7-18); CALCIUM 8.5 MG/DL (8.5-10.1); CARBON DIOXIDE 29 MMOL/L (21-32); CHLORIDE 106 MMOL/L (98-107); CREATININE 0.7 MG/DL (0.55-1.30); POTASSIUM 3.8 MMOL/L (3.5-5.1); SODIUM 141 MMOL/L (136-145)
[2017-08-06] MEDS ORDERED: Tranexamic Acid 1000mg-Patients>50kg (1st Dose) IVPB ONE ×2 (17:30)
[2017-08-06 17:31] VITALS: BP 126/69
[2017-08-06 17:35] LABS: ALANINE AMINOTRANSFERASE 22 U/L (12-78); ALBUMIN 2.9 G/DL (3.4-5.0); ALBUMIN/GLOBULIN RATIO 0.8 (1.0-2.7); ALKALINE PHOSPHATASE 107 U/L (46-116); ASPARTATE AMINO TRANSFERASE 15 U/L (15-37); BILIRUBIN,TOTAL 0.1 MG/DL (0.2-1.0)
--- NOTE | 2017-08-06 18:34 | Emergency Room Report ---
History of Present Illness General Chief Complaint: General Complaint Source: Patient Present Illness HPI Patient is a 62-year-old female who presented after a vaginal bleeding. Patient reports having onset of bleeding approximately 2 weeks prior to arrival. Patient states she is postmenopausal. She had been told in the past that she might need a hysterectomy. The patient reports having some lower abdominal cramping. She denies any vomiting. The patient reported having increased bleeding today. The patient denies recent sexual activity. Allergies: Coded Allergies: IBUPROFEN (Verified Adverse Reaction, Intermediate, GI UPSET, 04/06/12) Patient History Past Medical History: see triage record Reviewed Nursing Documentation: PMH: Agreed; PSxH: Agreed Nursing Documentation-PMH Hx Hypertension: No Hx Pacemaker: No Hx Asthma: Yes Hx COPD: No Hx Diabetes: Yes Hx Cancer: No Hx Gastrointestinal Problems: No Hx Dialysis: No Hx Cerebrovascular Accident: No Hx Seizures: No Review of Systems All Other Systems: negative except mentioned in HPI Physical Exam Vital Signs Date Time Temp Pulse Resp B/P (MAP) Pulse Ox O2 Delivery O2 Flow Rate FiO2 08/06/17 16:34 98.4 104 20 129/67 99 Room Air 98.4 Sp02 EP Interpretation: reviewed, normal General Appearance: normal inspection, well appearing, no apparent distress, alert, GCS 15, non-toxic Head: atraumatic ENT: normal ENT inspection, hearing grossly normal, normal voice Neck: normal inspection, full range of motion, supple, no bony tend Respiratory: normal inspection, lungs clear, normal breath sounds, no respiratory distress, no retraction, no wheezing Cardiovascular #1: regular rate, rhythm, no edema Gastrointestinal: normal inspection, normal bowel sounds, non tender, soft, no guarding, no hernia Genitourinary: no CVA tenderness, os closed, other - enlarged uterus, mild bleeding dark blood Musculoskeletal: normal inspection, back normal, normal range of motion Neurologic: normal inspection, alert, oriented x3, responsive, route delivery service driver III-XII nml as tested, speech normal Psychiatric: normal inspection, judgement/insight normal, mood/affect normal Skin: normal inspection, normal color, no rash Medical Decision Making Diagnostic Impression: Primary Impression: Abnormal uterine bleeding Additional Impression: Fibroid (bleeding) (uterine) ER Course Patient presented for vaginal bleeding. Differential diagnosis included was not limited to anemia, coagulopathy, fibroid, uterine cancer among others.Because of complexity of patient's case laboratory testing and imaging studies were ordered. The patient was noted to have adequate hemoglobin. The patient was given IV tranexamic acid for bleeding. The CT of the abdomen pelvis read by radiology showed no acute process.The patient is advised to follow up with primary care doctor in 1-2 days. The patient was advised that she may need endometrial biopsy and/or hysterectomy. Patient is advised to return if any worsening condition or if any changes in status that are concerning. This report is dictated with [employer] physicist cryogenics software which may occasionally lead to discrepancies related to use of this software. Labs Test 08/06/17 14:40 White Blood Count 8.2 K/UL (4.8-10.8) Red Blood Count 4.21 M/UL (4.20-5.40) Hemoglobin 12.3 G/DL (12.0-16.0) Hematocrit 37.4 % (37.0-47.0) Mean Corpuscular Volume 89 FL (80-99) Mean Corpuscular Hemoglobin 29.2 PG (27.0-31.0) Mean Corpuscular Hemoglobin Concent 32.9 G/DL (32.0-36.0) Red Cell Distribution Width 12.0 % (11.6-14.8) Platelet Count 203 K/UL (150-450) Mean Platelet Volume 8.0 FL (6.5-10.1) Neutrophils (%) (Auto) 58.1 % (45.0-75.0) Lymphocytes (%) (Auto) 33.4 % (20.0-45.0) Monocytes (%) (Auto) 4.8 % (1.0-10.0) Eosinophils (%) (Auto) 2.7 % (0.0-3.0) Basophils (%) (Auto) 0.9 % (0.0-2.0) Prothrombin Time 9.7 SEC (9.30-11.50) Prothromb Time International Ratio 0.9 (0.9-1.1) Activated Partial Thromboplast Time 28 SEC (23-33) Urine Color Yellow Urine Appearance Cloudy Urine pH 6 (4.5-8.0) Urine Specific [place] 1.015 (1.005-1.035) Urine Protein 2+ (NEGATIVE) Urine Glucose (UA) 2+ (NEGATIVE) Urine Ketones Negative (NEGATIVE) Urine Occult Blood 5+ (NEGATIVE) Urine Nitrite Negative (NEGATIVE) Urine Bilirubin Negative (NEGATIVE) Urine Urobilinogen 1 MG/DL (0.0-1.0) Urine Leukocyte Esterase 1+ (NEGATIVE) Urine RBC Tntc /HPF (0 - 2) Urine WBC 0-2 /HPF (0 - 2) Urine Squamous Epithelial Cells Few /LPF (NONE/OCC) Urine Bacteria Few /HPF (NONE) Sodium Level 141 MMOL/L (136-145) Potassium Level 3.8 MMOL/L (3.5-5.1) Chloride Level 106 MMOL/L (98-107) Carbon Dioxide Level 29 MMOL/L (21-32) Anion Gap 6 mmol/L (5-15) Blood Urea Nitrogen 17 mg/dL (7-18) Creatinine 0.7 MG/DL (0.55-1.30) Estimat Glomerular Filtration Rate > 60 mL/min (>60) Glucose Level 265 MG/DL (74-106) Calcium Level 8.5 MG/DL (8.5-10.1) Total Bilirubin 0.1 MG/DL (0.2-1.0) Aspartate Amino Transf (AST/SGOT) 15 U/L (15-37) Alanine Aminotransferase (ALT/SGPT) 22 U/L (12-78) Alkaline Phosphatase 107 U/L (46-116) Total Protein 6.6 G/DL (6.4-8.2) Albumin 2.9 G/DL (3.4-5.0) Globulin 3.7 g/dL Albumin/Globulin Ratio 0.8 (1.0-2.7) Lipase 631 U/L (73-393) Last Vital Signs Date Time Temp Pulse Resp B/P (MAP) Pulse Ox O2 Delivery O2 Flow Rate FiO2 08/06/17 17:31 98.0 84 13 126/69 96 Room Air 98.0 Status: improved Disposition: HOME, SELF-CARE Condition: Stable Referrals: [facility],REFERR[facility] (PCP) Erasto Lofton MD August 06, 2017 18:34
[2017-08-06 18:59] VITALS: BP 119/62
--- NOTE | 2017-08-07 09:14 | Diagnostic Imaging Report ---
Indication: Abdominal pain Technique: Continuous helical transaxial imaging of the abdomen and pelvis was obtained from the lung bases to the pubic symphysis during intravenous contrast administration. Coronal 2-D reformats were also obtained. Study obtained in a Siemens sensation [address] Automatic Exposure Control was utilized. Total Dose length Product (DLP): 934.[address] Dose Index Volume (CTDIvol): 18.6 mGy Comparison: 02/28/2013 Findings: Lung bases are clear. Aortoiliac calcifications are prominent. The appendix is normal. Small amount of free fluid noted within the pelvis. Uterus is heterogeneous in appearance. One may correlate with ultrasound if needed. No evidence of bowel obstruction. Small epigastric hernia containing fat noted in the midline anterior abdominal wall. Gallbladder is contracted. There is no abscess. There is no free fluid. There is a small right inguinal hernia containing fat. Degenerative vacuum phenomena within the narrowed discs noted in the lower lumbar spine with the hypertrophied facets. Spinal stenosis suspected centrally. This may be further evaluated with MRI. IMPRESSION: No acute findings appreciated. Multiple incidental findings as above The CT scanner at [facility] is accredited by the [employer] and the scans are performed using dose optimization techniques as appropriate to a performed exam including Automatic Exposure control.
== END 2017-08-06 19:01 | disposition home or self-care (01) ==
LOC: EMR 17:11
DX: N93.9 Abnormal uterine and vaginal bleeding, unspecified (principal); D25.9 Leiomyoma of uterus, unspecified
CPT/HCPCS: 36415; 74177; 80053; 81003; 83690; 85025; 85610; 85730; 96365; 96374; 99284; Q9967; 96360

== ENCOUNTER 2018-01-04 00:24 | Emergency (ER) | payer OTHER ==
[~2018-01-04] VITALS: Ht 167.6 cm; Wt 81.6 kg
[2018-01-04 00:39] VITALS: BP 138/75
--- NOTE | 2018-01-04 00:53 | Emergency Room Report ---
History of Present Illness General Chief Complaint: Vaginal Source: Patient Present Illness HPI Is a 62-year-old female who is postmenopausal. She presents with vaginal bleeding and lower abdominal cramping pain. Onset today. This is a recurrent issue is been ongoing for a few months. She saw a manager financial systems already. Insolvency Practitioner recommend hysterectomy. She has not scheduled this. She also has not gotten an ultrasound. Patient said bleeding was intermittently and was light. Tonight she was passing clots and dark or bleeding. He is sharp and crampy. No nausea no vomiting. No fever chills but pain is 9 out of 10. Worse with movement. No other complaint. Allergies: Coded Allergies: IBUPROFEN (Verified Adverse Reaction, Intermediate, GI UPSET, 04/06/12) Patient History Past Medical History: see triage record, old chart reviewed, DM Past Surgical History: other Pertinent Family History: none Social History: Denies: smoking Last Menstrual Period: na Now: No Immunizations: other Reviewed Nursing Documentation: PMH: Agreed; PSxH: Agreed Nursing Documentation-PMH Past Medical History: No History, Except For Hx Hypertension: No Hx Pacemaker: No Hx Asthma: Yes Hx COPD: No Hx Diabetes: Yes Hx Cancer: No Hx Gastrointestinal Problems: No Hx Dialysis: No Hx Cerebrovascular Accident: No Hx Seizures: No Review of Systems Eye: Denies: eye pain, blurred vision ENT: Denies: ear pain, nose congestion, throat swelling Respiratory: Denies: cough, shortness of breath Cardiovascular: Denies: chest pain, palpitations Gastrointestinal: Denies: abdominal pain, diarrhea, nausea, vomiting Genitourinary: Reports: vag bleed/dc Musculoskeletal: Denies: back pain, joint pain Skin: Denies: rash Neurological: Denies: headache, numbness Endocrine: Denies: increased thirst, increased urine Hematologic/Lymphatic: Denies: easy bruising All Other Systems: negative except mentioned in HPI Physical Exam Vital Signs Date Time Temp Pulse Resp B/P (MAP) Pulse Ox O2 Delivery O2 Flow Rate FiO2 01/04/18 00:26 97.9 100 20 138/75 97 Room Air vitals normal Sp02 EP Interpretation: reviewed, normal General Appearance: well appearing, no apparent distress, alert Head: normocephalic, atraumatic Eyes: bilateral eye PERRL, bilateral eye EOMI ENT: hearing grossly normal, normal pharynx Neck: full range of motion, supple, no meningismus Respiratory: chest non-tender, lungs clear, normal breath sounds Cardiovascular #1: regular rate, rhythm, no murmur Gastrointestinal: normal bowel sounds, non tender, no mass, no organomegaly, no bruit, non-distended Genitourinary: ext genitalia/vag normal, other - pelvic exam done with Ellie female RN, as customs inspector. no active bleeding. scant amount of blood in vagina Musculoskeletal: back normal, gait/station normal, normal range of motion Psychiatric: mood/affect normal Skin: warm/dry Medical Decision Making Diagnostic Impression: Primary Impression: Dysfunctional uterine bleeding Additional Impression: UTI (urinary tract infection) Qualified Codes: N30.00 - Acute cystitis without hematuria ER Course Patient with dysfunctional uterine bleeding. She is postmenopausal so this raise a concern for possible neoplastic process. She said It Was Normal. She May Benefit from a Biopsy or Hysterectomy. She Has a gynecology follow-up already. Bleeding improved. Hemoglobin stable. We'll discharge home. Lab Results Impression labs unremarkable Last Vital Signs Date Time Temp Pulse Resp B/P (MAP) Pulse Ox O2 Delivery O2 Flow Rate FiO2 01/04/18 00:39 97.9 67 20 138/75 97 Room Air Status: improved Disposition: HOME, SELF-CARE Condition: Stable Scripts Cephalexin* (KEFLEX*) 500 Mg Capsule 500 MG ORAL TID, #21 CAP Prov: Krystian Bailey MD 01/04/18 Hydrocodone/Acetaminophen 5-325* (HYDROCODONE/ACETAMINOPHEN 5-325*) 1 Each Tablet 1 TAB ORAL Q6H PRN for For Pain, #20 TAB 0 Refills Prov: Krystian Bailey MD 01/04/18 Additional Instructions: Follow-up with your doctor in 7 days. Follow-up with your manager financial systems also. You may need a biopsy or hysterectomy. Return if symptom worsen. Krystian Bailey MD Jan 04, 2018 00:53
[2018-01-04] MEDS ORDERED: Morphine Sulfate 4mg/ml Inj (IV/IM USE ONLY) IVP ONE (01:00)
[2018-01-04] MEDS ORDERED: Ketorolac 30mg Inj IV ONE (01:00)
[2018-01-04 01:16] LABS: BASOPHILS % (AUTO) 0.7 % (0.0-2.0); EOSINOPHILS % (AUTO) 2.6 % (0.0-3.0); HEMATOCRIT 36.7 % (37.0-47.0); HEMOGLOBIN 11.5 G/DL (12.0-16.0); LYMPHOCYTES % (AUTO) 30.7 % (20.0-45.0); MEAN CORPUSCULAR VOLUME 80 FL (80-99); MONOCYTES % (AUTO) 5.5 % (1.0-10.0); NEUTROPHILS % (AUTO) 60.6 % (45.0-75.0); PLATELET COUNT 273 K/UL (150-450); RED CELL DISTRIBUTION WIDTH 14.5 % (11.6-14.8); WHITE BLOOD COUNT 8.7 K/UL (4.8-10.8)
[2018-01-04 01:16] LABS: APPEARANCE,URINE CLEAR; BILIRUBIN, URINE NEGATIVE (NEGATIVE); GLUCOSE, URINE (UA) 3+ (NEGATIVE); KETONES,URINE 1+ (NEGATIVE); LEUKOCYTE ESTERASE ,URINE 2+ (NEGATIVE); NITRITE,URINE NEGATIVE (NEGATIVE); PH,URINE 5 (4.5-8.0); PROTEIN,URINE 2+ (NEGATIVE); UROBILINOGEN,URINE 1 MG/DL (0.0-1.0)
[2018-01-04 01:24] LABS: COLOR,URINE YELLOW
[2018-01-04 01:25] LABS: ANION GAP 4 mmol/L (5-15); BLOOD UREA NITROGEN 17 mg/dL (7-18); CALCIUM 9.2 MG/DL (8.5-10.1); CARBON DIOXIDE 32 MMOL/L (21-32); CHLORIDE 101 MMOL/L (98-107); CREATININE 0.8 MG/DL (0.55-1.30); POTASSIUM 3.9 MMOL/L (3.5-5.1); SODIUM 137 MMOL/L (136-145)
[2018-01-04] MEDS ORDERED: HYDROCODON-ACE1 EA15 ORAL (01:44)
[2018-01-04] MEDS ORDERED: CEPHALEXIN500 MG ORAL (01:44)
[2018-01-04] MEDS ORDERED: cefTRIAXone 1 GM in NS 55 ML IVPB ONE (01:45)
[2018-01-04 02:17] VITALS: BP 125/68
[2018-01-04 02:19] VITALS: BP 138/75
== END 2018-01-04 02:19 | disposition home or self-care (01) ==
LOC: EMR 01:11
DX: N93.8 Other specified abnormal uterine and vaginal bleeding (principal); N30.00 Acute cystitis without hematuria; E11.9 Type 2 diabetes mellitus without complications; Z78.0 Asymptomatic menopausal state; Z88.8 Allergy status to other drugs, medicaments and biological substances
CPT/HCPCS: 36415; 80048; 81001; 85025; 96365; 96375; 99284; J0696; J2270; J2405

== ENCOUNTER 2018-03-05 07:50 | Emergency (ER) | payer OTHER ==
[~2018-03-05] VITALS: Ht 167.6 cm; Wt 77.1 kg
[~2018-03-05 07:50] MED LIST changes: +CEPHALEXIN500 MG ORAL
[2018-03-05 08:19] VITALS: BP 136/81
[2018-03-05] MEDS ORDERED: Sodium Chloride 500ML 500 ML IV ONE (08:28)
[2018-03-05] MEDS ORDERED: Morphine Sulfate 4mg/ml Inj (IV/IM USE ONLY) IVP ONE (08:30)
--- NOTE | 2018-03-05 08:53 | Emergency Room Report ---
History of Present Illness General Chief Complaint: Female Urogenital Problems Source: Patient Present Illness HPI 63-year-old female presents ED for evaluation. Complaining of lower pelvic pain. With bleeding. Sharp, 9 out of 10, nonradiating. States that she is postmenopausal however she's been having episodes of bleeding. Was seen here in December for the same thing. Was being seen by HADOOP ADMINISTRATOR as outpatient. Was scheduled to have biopsy done. Also had outpatient ultrasound done but does not know the results. History of fibroids. Called her HADOOP ADMINISTRATOR today but unavailable since she came to the ER. No other aggravating relieving factors. Denies any other associated symptoms Allergies: Coded Allergies: IBUPROFEN (Verified Adverse Reaction, Intermediate, GI UPSET, 04/06/12) Patient History Past Medical History: DM, asthma Past Surgical History: none Pertinent Family History: none Social History: Denies: smoking, alcohol use, drug use Now: No Immunizations: UTD Reviewed Nursing Documentation: PMH: Agreed; PSxH: Agreed Nursing Documentation-PMH Past Medical History: No History, Except For Hx Hypertension: No Hx Pacemaker: No Hx Asthma: Yes Hx COPD: No Hx Diabetes: Yes Hx Cancer: No Hx Gastrointestinal Problems: No Hx Dialysis: No Hx Cerebrovascular Accident: No Hx Seizures: No Review of Systems All Other Systems: negative except mentioned in HPI Physical Exam Vital Signs Date Time Temp Pulse Resp B/P (MAP) Pulse Ox O2 Delivery O2 Flow Rate FiO2 03/05/18 08:01 97.9 111 23 138/82 97 Room Air Sp02 EP Interpretation: reviewed, normal General Appearance: no apparent distress, alert, GCS 15, non-toxic Head: normocephalic, atraumatic Eyes: bilateral eye normal inspection, bilateral eye PERRL ENT: hearing grossly normal, normal pharynx, no angioedema, normal voice Neck: full range of motion, supple/symm/no masses Respiratory: chest non-tender, lungs clear, normal breath sounds, speaking full sentences Cardiovascular #1: regular rate, rhythm, no edema Cardiovascular #2: 2+ carotid (R), 2+ carotid (L), 2+ radial (R), 2+ radial (L) , 2+ dorsalis pedis (R), 2+ dorsalis pedis (L) Gastrointestinal: normal bowel sounds, soft, non-distended, no guarding, no rebound, tenderness - suprapubic Rectal: deferred Genitourinary: normal inspection, no CVA tenderness Musculoskeletal: back normal, gait/station normal, normal range of motion, non- tender Neurologic: alert, oriented x3, responsive, motor strength/tone normal, sensory intact, speech normal Psychiatric: judgement/insight normal, memory normal, mood/affect normal, no suicidal/homicidal ideation Reflexes: 3+ bicep (R), 3+ bicep (L), 3+ tricep (R), 3+ tricep (L), 3+ knee (R) , 3+ knee (L) Skin: normal color, no rash, warm/dry, well hydrated Lymphatic: no adenopathy Medical Decision Making Diagnostic Impression: Primary Impression: Vaginal bleeding Additional Impression: UTI (urinary tract infection) Qualified Codes: N39.0 - Urinary tract infection, site not specified ER Course Hospital Course 63 yo F presents with lower abd pain, bleeding Differential diagnoses include: gastrits, gastroenterits, ectopic , ovarian torsion/cyst, UTI Clinical course Patient placed on stretcher in ED. After initial history and physical I ordered labs, IV fluids and pain meds and pelvic ultrasound. Labs-no leukocytosis, electrolytes okay, hb/hct stable, UA + bacteria Pelvic ultrasound- fibroids, heterogenous uterus, nonvisualized ovaries Patient was seen here previously for similar presentation. Did not have ultrasound at that time with unremarkable labs. Say she did have an ultrasound as outpatient as waiting for results. Is scheduled for biopsy in March. I explained findings to patient. We will discharge with short course of pain meds and antibiotics. Patient is to follow- up with her HADOOP ADMINISTRATOR for further care Diagnosis - vaginal bleeding, UTI Stable and discharged to home with Rx Tylenol #3, Keflex. Followup with PMD/OB/ IT SECURITY ENGINEER. Return to ED if symptoms recur or worsen Labs Test 03/05/18 08:10 03/05/18 08:34 03/05/18 09:09 Urine Color Pale yellow Urine Appearance Slightly cloudy Urine pH 7 (4.5-8.0) Urine Specific [place] 1.010 (1.005-1.035) Urine Protein 2+ (NEGATIVE) Urine Glucose (UA) 4+ (NEGATIVE) Urine Ketones Negative (NEGATIVE) Urine Blood 4+ (NEGATIVE) Urine Nitrite Negative (NEGATIVE) Urine Bilirubin Negative (NEGATIVE) Urine Urobilinogen 1 MG/DL (0.0-1.0) Urine Leukocyte Esterase 2+ (NEGATIVE) Urine RBC 5-10 /HPF (0 - 2) Urine WBC 2-4 /HPF (0 - 2) Urine Squamous Epithelial Cells Moderate /LPF (NONE/OCC) Urine Bacteria Moderate /HPF (NONE) White Blood Count 7.5 K/UL (4.8-10.8) Red Blood Count 4.06 M/UL (4.20-5.40) Hemoglobin 11.0 G/DL (12.0-16.0) Hematocrit 35.3 % (37.0-47.0) Mean Corpuscular Volume 87 FL (80-99) Mean Corpuscular Hemoglobin 27.1 PG (27.0-31.0) Mean Corpuscular Hemoglobin Concent 31.2 G/DL (32.0-36.0) Red Cell Distribution Width 14.7 % (11.6-14.8) Platelet Count 268 K/UL (150-450) Mean Platelet Volume 7.5 FL (6.5-10.1) Neutrophils (%) (Auto) 59.3 % (45.0-75.0) Lymphocytes (%) (Auto) 33.1 % (20.0-45.0) Monocytes (%) (Auto) 5.3 % (1.0-10.0) Eosinophils (%) (Auto) 1.9 % (0.0-3.0) Basophils (%) (Auto) 0.4 % (0.0-2.0) Sodium Level 139 MMOL/L (136-145) Potassium Level 4.1 MMOL/L (3.5-5.1) Chloride Level 103 MMOL/L (98-107) Carbon Dioxide Level 31 MMOL/L (21-32) Anion Gap 5 mmol/L (5-15) Blood Urea Nitrogen 16 mg/dL (7-18) Creatinine 0.8 MG/DL (0.55-1.30) Estimat Glomerular Filtration Rate > 60 mL/min (>60) Glucose Level 248 MG/DL (74-106) Calcium Level 8.9 MG/DL (8.5-10.1) Total Bilirubin 0.1 MG/DL (0.2-1.0) Aspartate Amino Transf (AST/SGOT) 14 U/L (15-37) Alanine Aminotransferase (ALT/SGPT) 18 U/L (12-78) Alkaline Phosphatase 112 U/L (46-116) Total Protein 7.0 G/DL (6.4-8.2) Albumin 3.0 G/DL (3.4-5.0) Globulin 4.0 g/dL Albumin/Globulin Ratio 0.8 (1.0-2.7) Lipase 89 U/L (73-393) Prothrombin Time 10.5 SEC (9.30-11.50) Prothromb Time International Ratio 1.0 (0.9-1.1) Activated Partial Thromboplast Time 31 SEC (23-33) CT/MRI/US Diagnostic Results CT/MRI/US Diagnostic Results : Imaging Test Ordered: Pelvic US Impression 6 mm thick endometrium Small amount of cul-de-sac fluid, of uncertain significance as this is not physiologic in a postmenopausal female Heterogeneous myometrium, could indicate old fibroids. Nonvisualized ovaries, presumably atrophic. Negative for adnexal mass Last Vital Signs Date Time Temp Pulse Resp B/P (MAP) Pulse Ox O2 Delivery O2 Flow Rate FiO2 03/05/18 08:19 98.0 100 22 136/81 98 Room Air Status: improved Disposition: HOME, SELF-CARE Condition: Stable Scripts Acetaminophen With Codeine (T#3) (TYLENOL #3 TAB*) Y Tab 1 TAB ORAL Q8H PRN for For Pain for 3 Days, TAB Prov: Mahad Trevino MD 03/05/18 Cephalexin* (KEFLEX*) 500 Mg Capsule 500 MG ORAL EVERY 6 HOURS for 7 Days, CAP Prov: Mahad Trevino MD 03/05/18 Mahad Trevino MD Mar 05, 2018 08:53
[2018-03-05 09:13] LABS: BASOPHILS % (AUTO) 0.4 % (0.0-2.0); EOSINOPHILS % (AUTO) 1.9 % (0.0-3.0); HEMATOCRIT 35.3 % (37.0-47.0); LYMPHOCYTES % (AUTO) 33.1 % (20.0-45.0); MEAN CORPUSCULAR VOLUME 87 FL (80-99); MONOCYTES % (AUTO) 5.3 % (1.0-10.0); NEUTROPHILS % (AUTO) 59.3 % (45.0-75.0); PLATELET COUNT 268 K/UL (150-450); RED BLOOD COUNT 4.06 M/UL (4.20-5.40); RED CELL DISTRIBUTION WIDTH 14.7 % (11.6-14.8); WHITE BLOOD COUNT 7.5 K/UL (4.8-10.8)
[2018-03-05 09:15] LABS: APPEARANCE,URINE SLIGHTLY CLOUDY; BILIRUBIN, URINE NEGATIVE (NEGATIVE); COLOR,URINE PALE YELLOW; GLUCOSE, URINE (UA) 4+ (NEGATIVE); KETONES,URINE NEGATIVE (NEGATIVE); LEUKOCYTE ESTERASE ,URINE 2+ (NEGATIVE); NITRITE,URINE NEGATIVE (NEGATIVE); PH,URINE 7 (4.5-8.0); PROTEIN,URINE 2+ (NEGATIVE); UROBILINOGEN,URINE 1 MG/DL (0.0-1.0)
[2018-03-05 09:21] LABS: ANION GAP 5 mmol/L (5-15); BLOOD UREA NITROGEN 16 mg/dL (7-18); CALCIUM 8.9 MG/DL (8.5-10.1); CARBON DIOXIDE 31 MMOL/L (21-32); CHLORIDE 103 MMOL/L (98-107); CREATININE 0.8 MG/DL (0.55-1.30); POTASSIUM 4.1 MMOL/L (3.5-5.1); SODIUM 139 MMOL/L (136-145)
[2018-03-05 09:25] LABS: ALANINE AMINOTRANSFERASE 18 U/L (12-78); ALBUMIN/GLOBULIN RATIO 0.8 (1.0-2.7); ALKALINE PHOSPHATASE 112 U/L (46-116); ASPARTATE AMINO TRANSFERASE 14 U/L (15-37); BILIRUBIN,TOTAL 0.1 MG/DL (0.2-1.0)
--- NOTE | 2018-03-05 10:28 | Diagnostic Imaging Report ---
Indication: Abdominal pain and pelvic pain, postmenopausal bleeding Technique: Transabdominal and transvaginal images Comparison: none Findings: Exam is somewhat limited as patient was uncomfortable and in pain. Uterus measures 10.9 cm length by 5.9 cm AP. The endometrium measures 6 mm thick. Heterogeneous myometrium. Small amount of free pelvic fluid is demonstrated. Either ovary could be demonstrated. No adnexal mass Impression: Somewhat limited exam, as described 6 mm thick endometrium Small amount of cul-de-sac fluid, of uncertain significance as this is not physiologic in a postmenopausal female Heterogeneous myometrium, could indicate old fibroids. Nonvisualized ovaries, presumably atrophic. Negative for adnexal mass
[2018-03-05 11:00] VITALS: BP 131/76
[2018-03-05] MEDS ORDERED: ACETAMINOPHEN-1 EAC1 ORAL (11:00)
[2018-03-05] MEDS ORDERED: CEPHALEXIN500 MG ORAL (11:00)
== END 2018-03-05 11:06 | disposition home or self-care (01) ==
LOC: EMR 09:02
DX: N93.9 Abnormal uterine and vaginal bleeding, unspecified (principal); N39.0 Urinary tract infection, site not specified; R10.2 Pelvic and perineal pain; J45.909 Unspecified asthma, uncomplicated; E11.9 Type 2 diabetes mellitus without complications
CPT/HCPCS: 36415; 76856; 80053; 81003; 83690; 85025; 85610; 85730; 87086; 96374; 99284; J2270

== ENCOUNTER 2018-04-07 09:30 | Emergency (ER) | payer OTHER ==
[~2018-04-07] VITALS: Ht 165.1 cm; Wt 79.4 kg
--- NOTE | 2018-04-07 09:50 | NUR ---
ED Nurse Note: Pt came into the ER w/ complaints of abdominal pain since yesterday. Rating the pain a 10/10. Non radiating. According to the pt, heavy bleeding from her vaginal area started yesterday w/ brown foul smelling discharge. Pt had a uterine biopsy last . Pt menopaused in the year 1999. A + O x4. Ambulatory. Skin warm to touch.
[2018-04-07 09:52] VITALS: BP 154/78
[2018-04-07] MEDS ORDERED: Isovue-300 100ml vial INJ PRN (10:00)
[2018-04-07] MEDS ORDERED: Morphine Sulfate 4mg/ml Inj (IV/IM USE ONLY) IVP ONE (10:00)
--- NOTE | 2018-04-07 10:17 | NUR ---
ED Nurse Note: Blood and urine has been collected. Sent to lab. Consent for CT has been signed.
[2018-04-07 10:22] LABS: APPEARANCE,URINE SLIGHTLY CLOUDY; BILIRUBIN, URINE NEGATIVE (NEGATIVE); COLOR,URINE PALE YELLOW; GLUCOSE, URINE (UA) 4+ (NEGATIVE); KETONES,URINE NEGATIVE (NEGATIVE); LEUKOCYTE ESTERASE ,URINE 3+ (NEGATIVE); NITRITE,URINE NEGATIVE (NEGATIVE); PH,URINE 6 (4.5-8.0); PROTEIN,URINE 3+ (NEGATIVE); UROBILINOGEN,URINE 1 MG/DL (0.0-1.0)
[2018-04-07 10:26] LABS: BASOPHILS % (AUTO) 0.7 % (0.0-2.0); EOSINOPHILS % (AUTO) 0.9 % (0.0-3.0); HEMATOCRIT 34.7 % (37.0-47.0); HEMOGLOBIN 10.8 G/DL (12.0-16.0); LYMPHOCYTES % (AUTO) 28.3 % (20.0-45.0); MEAN CORPUSCULAR VOLUME 86 FL (80-99); MONOCYTES % (AUTO) 5.2 % (1.0-10.0); NEUTROPHILS % (AUTO) 64.9 % (45.0-75.0); PLATELET COUNT 290 K/UL (150-450); RED BLOOD COUNT 4.04 M/UL (4.20-5.40)
[2018-04-07 10:34] LABS: ANION GAP 6 mmol/L (5-15); BLOOD UREA NITROGEN 16 mg/dL (7-18); CALCIUM 8.9 MG/DL (8.5-10.1); CARBON DIOXIDE 31 MMOL/L (21-32); CHLORIDE 103 MMOL/L (98-107); CREATININE 0.9 MG/DL (0.55-1.30); POTASSIUM 4.4 MMOL/L (3.5-5.1); SODIUM 140 MMOL/L (136-145)
[2018-04-07 10:38] LABS: ALANINE AMINOTRANSFERASE 15 U/L (12-78); ALBUMIN 2.7 G/DL (3.4-5.0); ALBUMIN/GLOBULIN RATIO 0.6 (1.0-2.7); ALKALINE PHOSPHATASE 92 U/L (46-116); ASPARTATE AMINO TRANSFERASE 14 U/L (15-37); BILIRUBIN,TOTAL < 0.1 MG/DL (0.2-1.0)
--- NOTE | 2018-04-07 10:50 | NUR ---
ED Nurse Note: Pt went down to CT.
--- NOTE | 2018-04-07 11:05 | NUR ---
ED Nurse Note: Pt came back from CT.
[2018-04-07 12:05] VITALS: BP 137/63
--- NOTE | 2018-04-07 12:45 | Diagnostic Imaging Report ---
Indication: Abdominal and pelvic pain. Chest pain. Post-menopausal vaginal bleeding Technique: Continuous helical transaxial imaging of the chest, abdomen and pelvis was obtained from the lung bases to the pubic symphysis during intravenous contrast administration. Multiple phases of enhancement obtained. Coronal 2-D reformats were also obtained. Study obtained in a Siemens sensation [address] Automatic Exposure Control was utilized. Total Dose length Product (DLP): 1500.[address] Dose Index Volume (CTDIvol): 15.63,16.29 mGy Comparison: None Findings: CT CHEST: There are multiple small nodules within the lungs bilaterally consistent with metastatic neoplasm. There is a small hiatal hernia. No adenopathy is appreciated. Mild calcification of aorta noted. The axilla appear clear. CT abdomen pelvis: Comparison is made with the previous CT abdomen pelvis performed 08/06/2017. The uterus is diffusely abnormal with areas of abnormal low attenuation centrally replacing the uterine myometrium. There is the suggestion of heterogeneous mass replacing the uterine myometrium in an area that measures 5 to 6 cm. This is suspicious for malignancy especially in light of the metastatic nodules in the lung. Biopsy or hysterectomy is indicated. The uterus appeared heterogeneous on the previous CT dated 08/06/2017 but the appearance was more nonspecific at that time. Ultrasound was suggested at that time as warranted clinically. We are not aware if further workup was performed at that time. Retrospectively, no adenopathy seen on the previous CT. Currently, multiple small nodes are seen in the retroperitoneum particularly left para-aortic region and renal hilar aspect. Suspected lower iliac nodes as well bilaterally. There is an enhancing nodule in the right inguinal canal measuring 2.3 cm. This could be a peritoneal nodule or metastatic focus within a small inguinal hernia. INSOLE CHANNELER evaluation is recommended. The recent pelvic ultrasound 03/05/2018 examination was reviewed. Unfortunately, the study is markedly limited and technically poor showing relatively nonspecific very heterogeneous appearing uterus. Based on the current imaging findings, suspect endometrial carcinoma. There is a fairly well circumscribed hypodensity in the posterior aspect of segment 4 of the liver adjacent to the falciform ligament just anterior to the portal vein. This may be a area of focal fat and the appears similar on the prior occasion. The gallbladder is unremarkable. The urinary bladder is unremarkable. There is moderate fecal retention within the colon. There is no hydronephrosis. No adrenal mass seen. The spleen and pancreas appear unremarkable. The bones are heterogeneous in appearance probably degenerative in nature within the lumbar spine. The bones are osteopenic. There is narrowing of intervertebral discs and accompanying endplate osteophyte formation. Hypertrophied facet joints also demonstrated.. Aorta is moderately calcified within the abdomen. IMPRESSION: Evidence of metastatic neoplasm to the lungs. Multiple small nodules are demonstrated. The primary tumor may be endometrial carcinoma given abnormal appearance of the uterus with evidence of periuterine and retroperitoneal adenopathy. Generally, evaluation with pelvic ultrasound is appropriate. However, a recent pelvic ultrasound performed 03/05/2018 was relatively unrevealing due to a technically poor examination in part due to pain. Clinical evaluation by INSOLE CHANNELER is recommended. Nonspecific hypodense focus in the segment 4 of the liver probably focal fat. Atherosclerotic vascular disease. Small hiatal hernia Degenerative changes of the spine and generalized osteopenia. The CT scanner at [facility] is accredited by the [employer] and the scans are performed using dose optimization techniques as appropriate to a performed exam including Automatic Exposure control.
[2018-04-07] MEDS ORDERED: NORCO 5-325 TA1 EACH ORAL (13:18)
[2018-04-07 13:39] VITALS: BP 130/65
--- NOTE | 2018-04-07 13:42 | NUR ---
ED Nurse Note: Discharge instructions given to pt. Verbalized understanding. Answered all questions. ID band and IV site removed. Left ER w/ all belongings and w/ a steady gait.
--- NOTE | 2018-04-08 14:05 | Emergency Room Report ---
History of Present Illness General Chief Complaint: Abdominal Pain Source: Patient Present Illness HPI 63-year-old female presents ED for evaluation. Patient presents with vaginal bleeding and lower abdominal pain. Started yesterday. Pain is sharp, 8 out of 10, localized left lower quadrant with bleeding. States that she had a uterine biopsy done last week. Is waiting for the results. Denies fevers or chills. Denies chest pain. Denies any blood thinners. No other aggravating relieving factors. Denies any other associated symptoms Allergies: Coded Allergies: IBUPROFEN (Verified Adverse Reaction, Intermediate, GI UPSET, 04/06/12) Patient History Past Medical History: DM, asthma Past Surgical History: none Pertinent Family History: none Social History: Denies: smoking, alcohol use, drug use Now: No Immunizations: UTD Reviewed Nursing Documentation: PMH: Agreed; PSxH: Agreed Nursing Documentation-PMH Past Medical History: No History, Except For Hx Hypertension: No Hx Pacemaker: No Hx Asthma: Yes Hx COPD: No Hx Diabetes: Yes Hx Cancer: No Hx Gastrointestinal Problems: No Hx Dialysis: No Hx Cerebrovascular Accident: No Hx Seizures: No Review of Systems All Other Systems: negative except mentioned in HPI Physical Exam Vital Signs Date Time Temp Pulse Resp B/P (MAP) Pulse Ox O2 Delivery O2 Flow Rate FiO2 04/07/18 09:39 99.0 109 22 129/77 95 04/07/18 09:52 Room Air 04/07/18 09:52 99 Sp02 EP Interpretation: reviewed, normal General Appearance: no apparent distress, alert, GCS 15, non-toxic Head: normocephalic, atraumatic Eyes: bilateral eye normal inspection, bilateral eye PERRL ENT: hearing grossly normal, normal pharynx, no angioedema, normal voice Neck: full range of motion, supple/symm/no masses Respiratory: chest non-tender, lungs clear, normal breath sounds, speaking full sentences Cardiovascular #1: regular rate, rhythm, no edema Cardiovascular #2: 2+ carotid (R), 2+ carotid (L), 2+ radial (R), 2+ radial (L) , 2+ dorsalis pedis (R), 2+ dorsalis pedis (L) Gastrointestinal: normal bowel sounds, soft, non-distended, no guarding, no rebound, tenderness - LLQ Rectal: deferred Genitourinary: normal inspection, no CVA tenderness Musculoskeletal: back normal, gait/station normal, normal range of motion, non- tender Neurologic: alert, oriented x3, responsive, motor strength/tone normal, sensory intact, speech normal Psychiatric: judgement/insight normal, memory normal, mood/affect normal, no suicidal/homicidal ideation Reflexes: 3+ bicep (R), 3+ bicep (L), 3+ tricep (R), 3+ tricep (L), 3+ knee (R) , 3+ knee (L) Skin: normal color, no rash, warm/dry, well hydrated Lymphatic: no adenopathy Medical Decision Making Diagnostic Impression: Primary Impression: Metastatic malignant neoplasm to lung Qualified Codes: C78.00 - Secondary malignant neoplasm of unspecified lung Additional Impressions: Uterine cancer Qualified Codes: C55 - Malignant neoplasm of uterus, part unspecified Status post biopsy ER Course Hospital Course 63-year-old F presents to ED with LLQ pain s/p uterine biopsy last week Differential diagnosis includes- uterine rupture, laceration, anemia Clinical course Patient placed on stretcher. After initial history and physical I ordered labs , IV fluids, pain medications and CT scan I discussed case with OCCUPATIONAL THERAPY DEPARTMENT CHAIR Dr Bro Melendrez; he states that patient missed her appointments this week. States that uterine biopsy results came back positive for cancer. Recommends CT chest as well to look for metastasis Labs - no leukocytosis, Hb/Hct stable, eletrolytes ok, LFTs normal, UA unremarkable CT scan shows uterine neoplasm, no evidence of rupture, metastasis to the lungs Discussed findings with the patient. Patient was not aware of her biopsy results are findings. Patient understands that she does have cancer in the uterus with spread to the lungs. Patient is asking about her prognosis. I explained that I cannot provide accurate prognosis and she needs to discuss this with her OCCUPATIONAL THERAPY DEPARTMENT CHAIR We will provide copy of CT report to the patient. We also discussed findings with Dr. Melendrez and faxed him CT results. Dr. Melendrez states that he will see patient tomorrow in his office Safe for discharge with close outpatient follow-up I feel this is a highly complex case requiring extensive working including EKG/ Rhythm strip, Xray/CT/US, Blood/urine lab work, repeat exams while in ED, and administration of strong opiates/narcotics for pain control, admission to hospital or close patient follow up. Diagnosis - metastatic malignant neoplasm to lung, uterine cancer, status post biopsy Stable and discharged to home with prescription for [place]. Followup with PMD/OB /SUPERVISOR HOUSECLEANER. Return to ED if symptoms recur or worsen Labs Test 04/07/18 10:07 White Blood Count 9.0 K/UL (4.8-10.8) Red Blood Count 4.04 M/UL (4.20-5.40) Hemoglobin 10.8 G/DL (12.0-16.0) Hematocrit 34.7 % (37.0-47.0) Mean Corpuscular Volume 86 FL (80-99) Mean Corpuscular Hemoglobin 26.9 PG (27.0-31.0) Mean Corpuscular Hemoglobin Concent 31.2 G/DL (32.0-36.0) Red Cell Distribution Width 14.0 % (11.6-14.8) Platelet Count 290 K/UL (150-450) Mean Platelet Volume 7.4 FL (6.5-10.1) Neutrophils (%) (Auto) 64.9 % (45.0-75.0) Lymphocytes (%) (Auto) 28.3 % (20.0-45.0) Monocytes (%) (Auto) 5.2 % (1.0-10.0) Eosinophils (%) (Auto) 0.9 % (0.0-3.0) Basophils (%) (Auto) 0.7 % (0.0-2.0) Prothrombin Time 10.4 SEC (9.30-11.50) Prothromb Time International Ratio 1.0 (0.9-1.1) Activated Partial Thromboplast Time 27 SEC (23-33) Urine Color Pale yellow Urine Appearance Slightly cloudy Urine pH 6 (4.5-8.0) Urine Specific [place] 1.015 (1.005-1.035) Urine Protein 3+ (NEGATIVE) Urine Glucose (UA) 4+ (NEGATIVE) Urine Ketones Negative (NEGATIVE) Urine Blood 5+ (NEGATIVE) Urine Nitrite Negative (NEGATIVE) Urine Bilirubin Negative (NEGATIVE) Urine Urobilinogen 1 MG/DL (0.0-1.0) Urine Leukocyte Esterase 3+ (NEGATIVE) Urine RBC 40-60 /HPF (0 - 2) Urine WBC 10-15 /HPF (0 - 2) Urine Squamous Epithelial Cells Few /LPF (NONE/OCC) Urine Bacteria Few /HPF (NONE) Sodium Level 140 MMOL/L (136-145) Potassium Level 4.4 MMOL/L (3.5-5.1) Chloride Level 103 MMOL/L (98-107) Carbon Dioxide Level 31 MMOL/L (21-32) Anion Gap 6 mmol/L (5-15) Blood Urea Nitrogen 16 mg/dL (7-18) Creatinine 0.9 MG/DL (0.55-1.30) Estimat Glomerular Filtration Rate > 60 mL/min (>60) Glucose Level 357 MG/DL (74-106) Calcium Level 8.9 MG/DL (8.5-10.1) Total Bilirubin < 0.1 MG/DL (0.2-1.0) Aspartate Amino Transf (AST/SGOT) 14 U/L (15-37) Alanine Aminotransferase (ALT/SGPT) 15 U/L (12-78) Alkaline Phosphatase 92 U/L (46-116) Total Protein 6.9 G/DL (6.4-8.2) Albumin 2.7 G/DL (3.4-5.0) Globulin 4.2 g/dL Albumin/Globulin Ratio 0.6 (1.0-2.7) Lipase 216 U/L (73-393) CT/MRI/US Diagnostic Results CT/MRI/US Diagnostic Results : Imaging Test Ordered: CT A/P Impression Evidence of metastatic neoplasm to the lungs. Multiple small nodules are demonstrated. The primary tumor may be endometrial carcinoma given abnormal appearance of the uterus with evidence of periuterine and retroperitoneal adenopathy. Generally, evaluation with pelvic ultrasound is appropriate. However, a recent pelvic ultrasound performed 03/05/2018 was relatively unrevealing due to a technically poor examination in part due to pain. Clinical evaluation by SUPERVISOR HOUSECLEANER is recommended. Last Vital Signs Date Time Temp Pulse Resp B/P (MAP) Pulse Ox O2 Delivery O2 Flow Rate FiO2 04/07/18 13:39 98.0 100 20 130/65 98 Room Air 04/07/18 12:05 99 Status: improved Disposition: HOME, SELF-CARE Condition: Stable Scripts Hydrocodone Bit/Acetaminophen 5-325* (NORCO 5-325*) 1 Each Tablet 1 TAB ORAL Q6H PRN for For Pain, #10 TAB 0 Refills Prov: Mahad Trevino MD 04/07/18 Referrals: NON PHYSICIAN (PCP) Patient Instructions: Uterine Cancer Additional Instructions: make sure you see your OBGYN Dr Bro Melendrez as soon as possible. Mahad Trevino MD Apr 08, 2018 14:05
== END 2018-04-07 13:42 | disposition home or self-care (01) ==
LOC: EMR 09:55
DX: C78.00 Secondary malignant neoplasm of unspecified lung (principal); C55 Malignant neoplasm of uterus, part unspecified; Z98.890 Other specified postprocedural states; J45.909 Unspecified asthma, uncomplicated; Z88.6 Allergy status to analgesic agent; K44.9 Diaphragmatic hernia without obstruction or gangrene; M85.80 Other specified disorders of bone density and structure, unspecified site
CPT/HCPCS: 36415; 71260; 74177; 80053; 81003; 83690; 85025; 85610; 85730; 86850; 86900; 86901; 87086; 96361; 96374; 99284; J2270; Q9967

== ENCOUNTER 2018-04-26 06:02 | Emergency (ER) | payer OTHER ==
[~2018-04-26] VITALS: Ht 165.1 cm; Wt 79.4 kg
--- NOTE | 2018-04-26 06:20 | NUR ---
ED Nurse Note: RECIEVED PT ON [facility] AWAKE, ALERT AND ORIENTED X 4, PT HERE FROM HOME WITH C/O LOWER ABDOMINAL PAIN AT 10/10, PT STATES SHE WAS RECENTLY DIAGNOSED WITH UTERINE CANCER AND HAS SEVERE LOWER ABD PAIN WITH BLEEDING SINCE YESTERDAY, PT DENIES CP, HAS MILD SOB STATES DUE TO PAIN, PT APPEARS VERY UN-COMFORTABLE, PT IMMEDIATELY GOWNED AND PLACED ON CARDIAC MONITORING, WILL RESUME CARE ORDERED AND CONTINUE TO CLOSELY MONITOR.
[2018-04-26] MEDS ORDERED: Morphine Sulfate 4mg/ml Inj (IV USE ONLY) IVP ONE ×2 (06:45→08:00)
[2018-04-26 07:08] LABS: BASOPHILS % (AUTO) 0.8 % (0.0-2.0); EOSINOPHILS % (AUTO) 0.9 % (0.0-3.0); HEMATOCRIT 43.4 % (37.0-47.0); HEMOGLOBIN 13.5 G/DL (12.0-16.0); LYMPHOCYTES % (AUTO) 26.4 % (20.0-45.0); MEAN CORPUSCULAR VOLUME 86 FL (80-99); MONOCYTES % (AUTO) 6.1 % (1.0-10.0); NEUTROPHILS % (AUTO) 65.8 % (45.0-75.0); PLATELET COUNT 285 K/UL (150-450); RED BLOOD COUNT 5.04 M/UL (4.20-5.40); RED CELL DISTRIBUTION WIDTH 13.6 % (11.6-14.8); WHITE BLOOD COUNT 8.5 K/UL (4.8-10.8)
[2018-04-26 07:14] LABS: ANION GAP 9 mmol/L (5-15); BLOOD UREA NITROGEN 11 mg/dL (7-18); CALCIUM 9.7 MG/DL (8.5-10.1); CARBON DIOXIDE 28 MMOL/L (21-32); CHLORIDE 98 MMOL/L (98-107); CREATININE 0.7 MG/DL (0.55-1.30); POTASSIUM 3.8 MMOL/L (3.5-5.1); SODIUM 135 MMOL/L (136-145)
[2018-04-26 07:18] LABS: ALANINE AMINOTRANSFERASE 26 U/L (12-78); ALBUMIN 3.4 G/DL (3.4-5.0); ALBUMIN/GLOBULIN RATIO 0.7 (1.0-2.7); ALKALINE PHOSPHATASE 96 U/L (46-116); ASPARTATE AMINO TRANSFERASE 21 U/L (15-37); BILIRUBIN,TOTAL 0.4 MG/DL (0.2-1.0)
[2018-04-26] MEDS ORDERED: NORCO 5-325 TA1 EACH ORAL (07:56)
[2018-04-26 08:23] LABS: APPEARANCE,URINE CLEAR; BILIRUBIN, URINE NEGATIVE (NEGATIVE); COLOR,URINE PALE YELLOW; GLUCOSE, URINE (UA) 3+ (NEGATIVE); KETONES,URINE NEGATIVE (NEGATIVE); LEUKOCYTE ESTERASE ,URINE 1+ (NEGATIVE); NITRITE,URINE NEGATIVE (NEGATIVE); PH,URINE 7 (4.5-8.0); PROTEIN,URINE NEGATIVE (NEGATIVE); UROBILINOGEN,URINE NORMAL MG/DL (0.0-1.0)
[2018-04-26 08:33] VITALS: BP 140/75
--- NOTE | 2018-04-26 08:43 | NUR ---
ED Nurse Note: patient was DC home with son, VSS, no pain, ambulatory with steady gait. all belongings were given to the patient
--- NOTE | 2018-04-26 08:48 | Emergency Room Report ---
History of Present Illness General Chief Complaint: Abdominal Pain Source: Patient Present Illness HPI 63-year-old female presents ED for evaluation. Patient complaining of lower abdominal pain. 3 days. Pain is sharp, 10 out of 10, nonradiating. Also notes bleeding. Patient has been here several times for vaginal bleeding. On last ED visit patient had CT which documented uterine cancer with metastasis to the lungs. 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 Is scheduled to see her oncologist this week. States she does not have pain medication at this time. No other aggravating relieving factors. Denies any other associated symptoms Allergies: Coded Allergies: IBUPROFEN (Verified Adverse Reaction, Intermediate, GI UPSET, 04/06/12) Patient History Past Medical History: DM, asthma Past Surgical History: none Pertinent Family History: none Social History: Denies: smoking, alcohol use, drug use Last Menstrual Period: 1999 Now: No : 3 Para: 3 Immunizations: UTD Reviewed Nursing Documentation: PMH: Agreed; PSxH: Agreed Nursing Documentation-PMH Hx Hypertension: No Hx Pacemaker: No Hx Asthma: Yes Hx COPD: No Hx Diabetes: Yes Hx Cancer: No Hx Gastrointestinal Problems: No Hx Dialysis: No Hx Cerebrovascular Accident: No Hx Seizures: No Review of Systems All Other Systems: negative except mentioned in HPI Physical Exam Vital Signs Date Time Temp Pulse Resp B/P (MAP) Pulse Ox O2 Delivery O2 Flow Rate FiO2 04/26/18 06:09 98.1 119 24 155/94 97 Room Air Sp02 EP Interpretation: reviewed, normal General Appearance: no apparent distress, alert, GCS 15, non-toxic Head: normocephalic, atraumatic Eyes: bilateral eye normal inspection, bilateral eye PERRL ENT: hearing grossly normal, normal pharynx, no angioedema, normal voice Neck: full range of motion, supple/symm/no masses Respiratory: chest non-tender, lungs clear, normal breath sounds, speaking full sentences Cardiovascular #1: regular rate, rhythm, no edema Cardiovascular #2: 2+ carotid (R), 2+ carotid (L), 2+ radial (R), 2+ radial (L) , 2+ dorsalis pedis (R), 2+ dorsalis pedis (L) Gastrointestinal: normal bowel sounds, soft, non-distended, no guarding, no rebound, tenderness - suprapubic Rectal: deferred Genitourinary: normal inspection, no CVA tenderness Musculoskeletal: back normal, gait/station normal, normal range of motion, non- tender Neurologic: alert, oriented x3, responsive, motor strength/tone normal, sensory intact, speech normal Psychiatric: judgement/insight normal, memory normal, mood/affect normal, no suicidal/homicidal ideation Reflexes: 3+ bicep (R), 3+ bicep (L), 3+ tricep (R), 3+ tricep (L), 3+ knee (R) , 3+ knee (L) Skin: normal color, no rash, warm/dry, well hydrated Lymphatic: no adenopathy Medical Decision Making Diagnostic Impression: Primary Impression: Uterine cancer Qualified Codes: C55 - Malignant neoplasm of uterus, part unspecified Additional Impressions: Vaginal bleeding Metastatic malignant neoplasm to lung Qualified Codes: C78.00 - Secondary malignant neoplasm of unspecified lung ER Course Hospital Course 63 yo F presents to ED with vaginal bleeding, h/o uterine cancer Differential diagnoses include: anemia requiring transfusion, microcytic anemia , macrocytic anemia, heavy blood loss Clinical course Patient placed on stretcher. After initial history and physical I ordered labs , IVFs, pain meds Labs-hemoglobin and hematocrit within normal limits, no other electrolyte abnormalities. Discussed findings with patient. I saw patient on previous visit. I discussed with patient the diagnosis of uterine cancer with metastasis to the lungs on last visit. Since then patient is seen her BEHAVIORAL HEALTH AIDE and evaluated by oncology. No emergent indication for transfusino at this time. patient will be given short course of norco. patient will see her OBGYN/oncologist this week Diagnosis - uterine cancer, vaginal bleeding, metastatic malignant neoplasm to lungs Stable and discharged to home with Rx [place]. Followup with OBGYN, oncology. Return to ED if symptoms recur or worsen Labs Test 04/26/18 06:30 04/26/18 07:47 White Blood Count 8.5 K/UL (4.8-10.8) Red Blood Count 5.04 M/UL (4.20-5.40) Hemoglobin 13.5 G/DL (12.0-16.0) Hematocrit 43.4 % (37.0-47.0) Mean Corpuscular Volume 86 FL (80-99) Mean Corpuscular Hemoglobin 26.9 PG (27.0-31.0) Mean Corpuscular Hemoglobin Concent 31.2 G/DL (32.0-36.0) Red Cell Distribution Width 13.6 % (11.6-14.8) Platelet Count 285 K/UL (150-450) Mean Platelet Volume 7.8 FL (6.5-10.1) Neutrophils (%) (Auto) 65.8 % (45.0-75.0) Lymphocytes (%) (Auto) 26.4 % (20.0-45.0) Monocytes (%) (Auto) 6.1 % (1.0-10.0) Eosinophils (%) (Auto) 0.9 % (0.0-3.0) Basophils (%) (Auto) 0.8 % (0.0-2.0) Sodium Level 135 MMOL/L (136-145) Potassium Level 3.8 MMOL/L (3.5-5.1) Chloride Level 98 MMOL/L (98-107) Carbon Dioxide Level 28 MMOL/L (21-32) Anion Gap 9 mmol/L (5-15) Blood Urea Nitrogen 11 mg/dL (7-18) Creatinine 0.7 MG/DL (0.55-1.30) Estimat Glomerular Filtration Rate > 60 mL/min (>60) Glucose Level 246 MG/DL (74-106) Calcium Level 9.7 MG/DL (8.5-10.1) Total Bilirubin 0.4 MG/DL (0.2-1.0) Aspartate Amino Transf (AST/SGOT) 21 U/L (15-37) Alanine Aminotransferase (ALT/SGPT) 26 U/L (12-78) Alkaline Phosphatase 96 U/L (46-116) Total Protein 8.2 G/DL (6.4-8.2) Albumin 3.4 G/DL (3.4-5.0) Globulin 4.8 g/dL Albumin/Globulin Ratio 0.7 (1.0-2.7) Lipase 653 U/L (73-393) Urine Color Pale yellow Urine Appearance Clear Urine pH 7 (4.5-8.0) Urine Specific [place] 1.005 (1.005-1.035) Urine Protein Negative (NEGATIVE) Urine Glucose (UA) 3+ (NEGATIVE) Urine Ketones Negative (NEGATIVE) Urine Blood 4+ (NEGATIVE) Urine Nitrite Negative (NEGATIVE) Urine Bilirubin Negative (NEGATIVE) Urine Urobilinogen Normal MG/DL (0.0-1.0) Urine Leukocyte Esterase 1+ (NEGATIVE) Last Vital Signs Date Time Temp Pulse Resp B/P (MAP) Pulse Ox O2 Delivery O2 Flow Rate FiO2 04/26/18 08:33 98.0 72 15 135/78 Room Air 04/26/18 06:09 97 Status: improved Disposition: HOME, SELF-CARE Condition: Stable Scripts Hydrocodone Bit/Acetaminophen 5-325* (NORCO 5-325*) 1 Each Tablet 1 TAB ORAL Q6H PRN for For Pain, #12 TAB 0 Refills Prov: Mahad Trevino MD 04/26/18 Patient Instructions: Uterine Cancer Additional Instructions: followup with your OBGYN and your oncologist Mahad Trevino MD Apr 26, 2018 08:48
== END 2018-04-26 08:44 | disposition home or self-care (01) ==
LOC: EMR 07:10
DX: C55 Malignant neoplasm of uterus, part unspecified (principal); C78.00 Secondary malignant neoplasm of unspecified lung; E11.9 Type 2 diabetes mellitus without complications; J45.909 Unspecified asthma, uncomplicated; Z88.6 Allergy status to analgesic agent
CPT/HCPCS: 36415; 80053; 81003; 83690; 85025; 96361; 96374; 96376; 99284; J2270

== ENCOUNTER 2018-05-01 01:58 | Emergency (ER) | payer OTHER ==
[~2018-05-01] VITALS: Ht 165.1 cm; Wt 77.1 kg
[2018-05-01 02:00] VITALS: BP 163/92
[2018-05-01] MEDS ORDERED: HYDROmorphone 1mg/ml Carpuject IVP ONE (02:15)
[2018-05-01 02:31] LABS: BASOPHILS % (AUTO) 0.6 % (0.0-2.0); EOSINOPHILS % (AUTO) 1.4 % (0.0-3.0); HEMATOCRIT 34.7 % (37.0-47.0); HEMOGLOBIN 11.4 G/DL (12.0-16.0); LYMPHOCYTES % (AUTO) 32.3 % (20.0-45.0); MEAN CORPUSCULAR VOLUME 84 FL (80-99); NEUTROPHILS % (AUTO) 58.6 % (45.0-75.0); PLATELET COUNT 231 K/UL (150-450); RED BLOOD COUNT 4.11 M/UL (4.20-5.40); RED CELL DISTRIBUTION WIDTH 13.7 % (11.6-14.8); WHITE BLOOD COUNT 8.1 K/UL (4.8-10.8)
[2018-05-01 02:40] LABS: ANION GAP 5 mmol/L (5-15); BLOOD UREA NITROGEN 18 mg/dL (7-18); CALCIUM 9.6 MG/DL (8.5-10.1); CARBON DIOXIDE 33 MMOL/L (21-32); CHLORIDE 100 MMOL/L (98-107); CREATININE 0.7 MG/DL (0.55-1.30); POTASSIUM 3.8 MMOL/L (3.5-5.1); SODIUM 138 MMOL/L (136-145)
--- NOTE | 2018-05-01 02:47 | Emergency Room Report ---
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 She scheduled for hysterectomy on May 10. She presents with chief complaint of bilateral lower extremity spasm and pain. Onset tonight. No relief with bitemporal. No fever chills but no nausea no vomiting. Out of her pain medication. Pain is 10 out of 10. Worse with movement. She called 911. Allergies: Coded Allergies: IBUPROFEN (Verified Adverse Reaction, Intermediate, GI UPSET, 04/06/12) Patient History Past Medical History: see triage record, old chart reviewed Past Surgical History: other Pertinent Family History: none Social History: Reports: smoking Last Menstrual Period: UNK Now: No Immunizations: other Reviewed Nursing Documentation: PMH: Agreed; PSxH: Agreed Nursing Documentation-PMH Past Medical History: No History, Except For Hx Hypertension: No Hx Pacemaker: No Hx Asthma: Yes Hx COPD: No Hx Diabetes: Yes Hx Cancer: No Hx Gastrointestinal Problems: Yes - ULCER Hx Dialysis: No Hx Cerebrovascular Accident: No Hx Seizures: No Review of Systems Eye: Denies: eye pain, blurred vision ENT: Denies: ear pain, nose congestion, throat swelling Respiratory: Denies: cough, shortness of breath Cardiovascular: Denies: chest pain, palpitations Gastrointestinal: Denies: abdominal pain, diarrhea, nausea, vomiting Musculoskeletal: Reports: muscle pain; Denies: back pain, joint pain Skin: Denies: rash Neurological: Denies: headache, numbness Endocrine: Denies: increased thirst, increased urine Hematologic/Lymphatic: Denies: easy bruising All Other Systems: negative except mentioned in HPI Physical Exam Vital Signs Date Time Temp Pulse Resp B/P (MAP) Pulse Ox O2 Delivery O2 Flow Rate FiO2 05/01/18 01:53 97.7 100 16 163/92 98 Room Air labs with high blood pressure Sp02 EP Interpretation: reviewed, normal General Appearance: well appearing, no apparent distress, alert Head: normocephalic, atraumatic Eyes: bilateral eye PERRL, bilateral eye EOMI ENT: hearing grossly normal, normal pharynx Neck: full range of motion, supple, no meningismus Respiratory: chest non-tender, lungs clear, normal breath sounds Cardiovascular #1: regular rate, rhythm, no murmur Gastrointestinal: normal bowel sounds, non tender, no mass, no organomegaly, no bruit, non-distended Musculoskeletal: back normal, gait/station normal, normal range of motion, other - She has diffuse tenderness to the lower extremity. She said she has muscle spasm but I did not feel any spasm. No swelling or deformity. Pulses normal. Psychiatric: mood/affect normal Skin: warm/dry Medical Decision Making Diagnostic Impression: Primary Impression: Bilateral calf pain Additional Impression: Opiate dependence Qualified Codes: F11.20 - Opioid dependence, uncomplicated ER Course Patient presents with bilateral calf pain. This is unlikely to be DVT. She claims spasm but I felt no spasm. Pain is well-controlled now. She claimed that she is out of her pain medication for over a month. On the [employer] system, she received 30 tablets of Tylenol No. 3 on 04/22/2018. She received 60 tablets of [place] 7.5 mg on 04/16/2018. She claimed that already filled it but denied give her the medication. I find this highly suspicious. There is no evidence of any DVT, electrolyte abnormality, trauma or etiology for her pain. We'll discharge home. Last Vital Signs Date Time Temp Pulse Resp B/P (MAP) Pulse Ox O2 Delivery O2 Flow Rate FiO2 05/01/18 02:00 97.7 100 16 163/92 98 Room Air Status: improved Disposition: HOME, SELF-CARE Condition: Stable Additional Instructions: Follow-up with your Dr. in 2-3 days. Keep your appointment for hysterectomy. Take your pain medication that you said is still at [facility]. Return if worse. Krystian Bailey MD May 01, 2018 02:47
[2018-05-01 03:03] LABS: APPEARANCE,URINE CLEAR; BILIRUBIN, URINE NEGATIVE (NEGATIVE); COLOR,URINE PALE YELLOW; GLUCOSE, URINE (UA) 4+ (NEGATIVE); KETONES,URINE NEGATIVE (NEGATIVE); LEUKOCYTE ESTERASE ,URINE NEGATIVE (NEGATIVE); NITRITE,URINE NEGATIVE (NEGATIVE); PH,URINE 6 (4.5-8.0); PROTEIN,URINE 1+ (NEGATIVE); UROBILINOGEN,URINE 1 MG/DL (0.0-1.0)
[2018-05-01 03:07] VITALS: BP 163/92
== END 2018-05-01 03:07 | disposition home or self-care (01) ==
LOC: EDBD 01:58 → EMR 02:48
DX: M79.662 Pain in left lower leg (principal); M79.661 Pain in right lower leg; F11.20 Opioid dependence, uncomplicated; J45.909 Unspecified asthma, uncomplicated; E11.9 Type 2 diabetes mellitus without complications; Z88.6 Allergy status to analgesic agent; F17.200 Nicotine dependence, unspecified, uncomplicated
CPT/HCPCS: 36415; 80048; 80307; 81001; 85025; 96374; 99284; J1170

== ENCOUNTER 2018-05-16 15:26 | Emergency (ER) | payer OTHER ==
[~2018-05-16] VITALS: Ht 167.6 cm; Wt 79.4 kg
[2018-05-16 15:18] VITALS: BP 154/96
--- NOTE | 2018-05-16 15:26 | NUR ---
ED Nurse Note: Pt from home brought in by ambulance due to abd pain. Pt had uterine cancer removal last May 10 and c/o catheter from left side abdomen came off this morning. Noted surgical nader on medial abdomen and small incision on left side abdomen from catheter removal. Pt is AAO x4, follows commands with mild SOB at rest. Sinus tach on monitoring specialist.
--- NOTE | 2018-05-16 15:45 | Emergency Room Report ---
History of Present Illness General Chief Complaint: Abdominal Pain Source: Patient, EMS Present Illness HPI This is a 62-year-old female with a history of metastatic ovarian cancer who recently had a hysterectomy with some bowel resection at an outside hospital and had a indwelling port catheter, who arrives here with complaint of the Cole catheter dislodged. She states that she has some swelling in the lower abdomen. She does not recall where she had a Cole catheter. This was after surgery. She denies any vomiting. She denies any fever. No other associated symptoms. This happened prior to arrival this morning. Allergies: Coded Allergies: IBUPROFEN (Verified Adverse Reaction, Intermediate, GI UPSET, 04/06/12) Patient History Past Medical History: old chart reviewed Past Surgical History: hysterectomy Pertinent Family History: none Last Menstrual Period: na Nursing Documentation-PMH Past Medical History: No History, Except For Hx Hypertension: Yes Hx Pacemaker: No Hx Asthma: Yes Hx COPD: No Hx Diabetes: Yes Hx Cancer: Yes - uterine Hx Gastrointestinal Problems: Yes - colostomy Hx Dialysis: No Hx Cerebrovascular Accident: No Hx Seizures: No Review of Systems All Other Systems: negative except mentioned in HPI Physical Exam Vital Signs Date Time Temp Pulse Resp B/P (MAP) Pulse Ox O2 Delivery O2 Flow Rate FiO2 05/16/18 15:08 97.5 120 26 161/91 97 Room Air General Appearance: well appearing, no apparent distress Head: normocephalic, atraumatic ENT: hearing grossly normal, normal voice Neck: full range of motion, supple Respiratory: no respiratory distress, speaking full sentences Gastrointestinal: normal inspection, normal bowel sounds, soft, other - surgical nader are clear, dry, and intact Neurologic: normal inspection, alert Skin: normal inspection, normal color, no rash Medical Decision Making Diagnostic Impression: Primary Impression: Urinary retention ER Course Patient presented significant complexity of this. The patient does have urinary retention as per the bladder scan. A Cole catheter was reinserted. She has approximately 400 mL of urine output. She feels better. She was given medical for her chronic pain. Blood work was reviewed. Vital signs reviewed as. The patient will be discharged home with a 4 catheter intact. She should follow-up with her primary care physician and her surgeon as scheduled and to return if any change in symptoms or worsening symptoms. She is afebrile. Laboratory Tests Test 05/16/18 16:25 White Blood Count 11.6 K/UL (4.8-10.8) H Red Blood Count 3.49 M/UL (4.20-5.40) L Hemoglobin 9.4 G/DL (12.0-16.0) L Hematocrit 30.1 % (37.0-47.0) L Mean Corpuscular Volume 86 FL (80-99) Mean Corpuscular Hemoglobin 26.9 PG (27.0-31.0) L Mean Corpuscular Hemoglobin Concent 31.3 G/DL (32.0-36.0) L Red Cell Distribution Width 14.6 % (11.6-14.8) Platelet Count 389 K/UL (150-450) Mean Platelet Volume 7.3 FL (6.5-10.1) Neutrophils (%) (Auto) 81.7 % (45.0-75.0) H Lymphocytes (%) (Auto) 7.8 % (20.0-45.0) L Monocytes (%) (Auto) 8.3 % (1.0-10.0) Eosinophils (%) (Auto) 0.1 % (0.0-3.0) Basophils (%) (Auto) 2.3 % (0.0-2.0) H Sodium Level 134 MMOL/L (136-145) L Potassium Level 4.1 MMOL/L (3.5-5.1) Chloride Level 94 MMOL/L (98-107) L Carbon Dioxide Level 26 MMOL/L (21-32) Anion Gap 14 mmol/L (5-15) Blood Urea Nitrogen 31 mg/dL (7-18) H Creatinine 0.9 MG/DL (0.55-1.30) Estimate Glomerular Filtration Rate > 60 mL/min (>60) Glucose Level 358 MG/DL (74-106) H Calcium Level 9.4 MG/DL (8.5-10.1) Total Bilirubin 0.4 MG/DL (0.2-1.0) Aspartate Amino Transferase (AST) 17 U/L (15-37) Alanine Aminotransferase (ALT) 13 U/L (12-78) Alkaline Phosphatase 87 U/L (46-116) Total Protein 7.0 G/DL (6.4-8.2) Albumin 2.2 G/DL (3.4-5.0) L Globulin 4.8 g/dL Albumin/Globulin Ratio 0.5 (1.0-2.7) L Lipase 56 U/L (73-393) L Last Vital Signs Date Time Temp Pulse Resp B/P (MAP) Pulse Ox O2 Delivery O2 Flow Rate FiO2 05/16/18 15:18 97.2 147 34 154/96 93 Room Air Disposition: HOME, SELF-CARE Condition: Stable Patient Instructions: Cole Catheter Care, Adult, [id number] JAH MIDDLETON May 16, 2018 15:45
--- NOTE | 2018-05-16 16:43 | NUR ---
ED Nurse Note: Blood collected and sent.
[2018-05-16] MEDS ORDERED: HYDROcodone/Acetamin 5/325 tab ORAL ONE (16:45)
--- NOTE | 2018-05-16 16:49 | NUR ---
ED Nurse Note: Confirmed with Dr. Cortez that pt can drink water, water provided with medications.
--- NOTE | 2018-05-16 16:50 | NUR ---
ED Nurse Note: Pt being uncooperative and states she wants to go home. RN explained possible potential complications when she gets discharge without treatment.
[2018-05-16 17:00] LABS: BASOPHILS % (AUTO) 2.3 % (0.0-2.0); EOSINOPHILS % (AUTO) 0.1 % (0.0-3.0); HEMATOCRIT 30.1 % (37.0-47.0); HEMOGLOBIN 9.4 G/DL (12.0-16.0); LYMPHOCYTES % (AUTO) 7.8 % (20.0-45.0); MEAN CORPUSCULAR VOLUME 86 FL (80-99); MONOCYTES % (AUTO) 8.3 % (1.0-10.0); NEUTROPHILS % (AUTO) 81.7 % (45.0-75.0); PLATELET COUNT 389 K/UL (150-450); RED BLOOD COUNT 3.49 M/UL (4.20-5.40); RED CELL DISTRIBUTION WIDTH 14.6 % (11.6-14.8); WHITE BLOOD COUNT 11.6 K/UL (4.8-10.8)
[2018-05-16 17:09] LABS: ANION GAP 14 mmol/L (5-15); BLOOD UREA NITROGEN 31 mg/dL (7-18); CALCIUM 9.4 MG/DL (8.5-10.1); CARBON DIOXIDE 26 MMOL/L (21-32); CHLORIDE 94 MMOL/L (98-107); CREATININE 0.9 MG/DL (0.55-1.30); POTASSIUM 4.1 MMOL/L (3.5-5.1); SODIUM 134 MMOL/L (136-145)
[2018-05-16 17:17] VITALS: BP 169/90
[2018-05-16 17:18] LABS: ALANINE AMINOTRANSFERASE 13 U/L (12-78); ALBUMIN 2.2 G/DL (3.4-5.0); ALBUMIN/GLOBULIN RATIO 0.5 (1.0-2.7); ALKALINE PHOSPHATASE 87 U/L (46-116); ASPARTATE AMINO TRANSFERASE 17 U/L (15-37); BILIRUBIN,TOTAL 0.4 MG/DL (0.2-1.0)
[2018-05-16 17:55] VITALS: BP 158/89
--- NOTE | 2018-05-16 17:55 | NUR ---
ED Nurse Note: Pt is cleared by ER MD for discharge. Replaced rao catheter drainage bag with Leg bag per MD order. DC instructions was given and explained to pt and verbalized understanding of teachings. All medical devices such as ID band/IV removed. Pt is AAO x4, ambulatory and left with all personal belongings. Pt left with her family member.
[2018-05-22] MEDS ORDERED: GABAPENTIN100 MG ORAL (02:32)
[2018-05-22] MEDS ORDERED: TRAZODONE HCL150 MG ORAL (02:33)
[2018-05-22] MEDS ORDERED: LANTUS SOL100 UNIT/1 SUBQ (02:33)
[2018-05-22] MEDS ORDERED: NORCO 5-325 TA1 EACH ORAL (02:33)
== END 2018-05-16 17:55 | disposition home or self-care (01) ==
LOC: EDBD 15:26 → EMR 15:36
DX: T83.018A Breakdown (mechanical) of other urinary catheter, initial encounter (principal); R33.9 Retention of urine, unspecified; I10 Essential (primary) hypertension; E11.9 Type 2 diabetes mellitus without complications; Z93.3 Colostomy status; Z90.49 Acquired absence of other specified parts of digestive tract; Z90.710 Acquired absence of both cervix and uterus; Z85.43 Personal history of malignant neoplasm of ovary
CPT/HCPCS: 36415; 51702; 80053; 83690; 85025; 99284